=== PATIENT | male | born 1935 | race Caucasian/White ===

== ENCOUNTER → 2017-01-11 | Outpatient (CLI) | payer MEDICARE, OTHER ==
[~2017-01-11] MED LIST: CHOL200026 PO; CIPR-213 PO; FERR325C PO; HYDR-4246 PO; MULT-806 PO; ROSU5TAB PO; TAMS0.4C46 PO
--- NOTE | 2017-01-11 11:55 | DI ---
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 Heart and central vascularity are unremarkable. Mediastinum somewhat widened. Since the previous study there is now a port in place in ordering from the right side. Postoperative changes seen about the gastroesophageal junction and extending down into the left upper quadrant. Lungs are clear. No acute bony abnormality suggested. Impression: 1. Continued elevated right diaphragm without significant change since the 2014 exam. No acute new findings are seen. 2. Since that study there is now a port in place on the right. .
--- NOTE | 2017-01-11 19:20 | ECHOF ---
ECHOCARDIOGRAM DATE OF PROCEDURE January 11, 2017 This is a two-dimensional with spectral Doppler, color-flow and M-mode. It was obtained in a patient with cancer, status post chemotherapy. Left atrial dimension is at the upper limits of normal. Left ventricular end-diastolic dimension is normal. Left ventricular wall thickness is increased. LV systolic function is normal with ejection fraction of 68%. Right atrium is normal. Right ventricle is normal. Aortic root dimension is normal. Mitral annulus is calcified. Mitral valve leaflets are normal with mild mitral regurgitation. Aortic valve shows fibrocalcific changes with no stenosis. Mild aortic insufficiency is present. Tricuspid valve shows mild tricuspid regurgitation with estimated pulmonary artery systolic pressure of 32. Pulmonary valve shows trace of pulmonary insufficiency. There is no pericardial effusion. IMPRESSION 1. Normal LV systolic function with ejection fraction of 68%. 2. Left ventricular hypertrophy. 3. Mitral annulus calcification with mild mitral regurgitation. 4. Aortic sclerosis with mild aortic insufficiency. 5. Mild tricuspid regurgitation with estimated pulmonary artery systolic pressure of 32. 6. Trace of pulmonary insufficiency. MTDD
== END ==
LOC: IMA 07:37
PROVIDERS: ATTEND Internal Medicine Medical Oncology
DX: C16.0 Malignant neoplasm of cardia (principal); I08.3 Combined rheumatic disorders of mitral, aortic and tricuspid valves; Z97.8 Presence of other specified devices
CPT/HCPCS: 93306

== ENCOUNTER 2017-12-24 13:24 | Inpatient (IN) ==
[2017-12-24] MEDS ORDERED: MIDAZOLAM 2mg/2ml INJECTION IVP ONE (13:25)
[2017-12-24] MEDS ORDERED: SALINE FLUSH 10ml SYRINGE IV ONE (13:25)
[2017-12-24] MEDS ORDERED: METOPROLOL 5mg/5ml INJECTION IVP ONE ×2 (13:40→14:22)
--- NOTE | 2017-12-24 14:02 | Cardiology History & Physical ---
History of Present Illness Chief complaint: SOA HPI: Obdulio is a 82 year old with a history of esophageal cancer who was hospitalized from 11/30/17-12/10/17 for robotic assisted esophagectomy which ended up being a laparotomy and thoracotomy incision. Postoperatively he had persistent leukocytosis and tachycardia. On discharge he was afebrile, voiding, ambulating, on room air, tolerating a diet and having bowel movements. The past 2-3 days he has experienced some DAUGHERTY with very little activity which he said he would recover from quickly but has persisted. This morning was his scheduled follow up with Surgeon Dr. Fitzgerald, followed by follow up with his PCP Dr. Gonzalez Richard. At Dr. Fuentes office an EKG was obtained which revealed A Fib with RVR, HR 156. Dr. Casas was contacted and accepted him for observation admission for further evaluation and treatment of A Fib. Review of Systems - Constitutional Constitutional: Present: fatigue. Absent: chills, fever(s) - EENMT Eyes: Absent: change in vision Balance: Absent: vertigo Mouth/Throat: Absent: sore throat - Cardiovascular Cardiovascular: Present: dyspnea on exertion, edema (right leg chronic). Absent : chest pain, palpitations, syncope Rhythm: Absent: abnormal rhythm Vascular: Absent: pedal edema - Respiratory Respiratory: Present: dyspnea on exertion. Absent: cough, wheezing - Gastrointestinal Gastrointestinal: Absent: abdominal pain, diarrhea, nausea, vomiting - Genitourinary Genitourinary: Absent: dysuria - Integumentary/Breasts Integumentary: Absent: rash - Neurological Neurological: Absent: dizziness - Endocrine Endocrine: Absent: palpitations PFS Patient Stated Medical History Cerebrovascular Accident No Paralysis No Seizures No Syncope No Angina No Cardiac Arrhythmia No Congestive Heart Failure No Coronary Artery Disease No Heart Murmur No Hypertension No Hypotension No Myocardial Infarction No Rheumatic Fever No Valvular Heart Disease No Other Cardiology No Asthma No Bronchitis No Chronic Obstructive Pulmonary No Disease (COPD) Pneumonia No Pulmonary Edema No Pulmonary Embolism No Sleep Apnea No Tuberculosis No Other Respiratory No Diabetes Mellitus Type 1 No Diabetes Mellitus Type 2 No Cirrhosis No Gastroesophageal Reflux Yes: hx of- no problems recently Disease Gastrointestinal Bleeding No Hepatitis No Hiatal Hernia No Obstructive Bowel No Ulcer No Other GI No Hx Benign Prostatic Yes Hyperplasia Osteoarthritis Yes Other Musculoskeletal No Anesthesia Reactions No Blood Transfusions No Chemotherapy Yes: LAST AUGUST 2017 Malignant Hyperthermia No Other No Depression No Now No Clinic Medical History (Last Updated 06/04/17 @ 11:27 by Olya Frye LPN) Atrial fibrillation with rapid ventricular response (Acute Medical) New onset Personal history of other malignant neoplasms of lymphoid, hematopoietic and related tissues (Chronic Medical) Esophageal cancer (Chronic Medical) S/P resection of distal esophagus/prox stomach Spinal stenosis of lumbar region (Chronic Medical) Low back pain (Chronic Medical) BPH (benign prostatic hyperplasia) (Chronic Medical) Hypercholesterolemia (Chronic Medical) Surgical History: Hiatal hernia repair 1984. Left knee arthroscopy 1994. Left TKR ([facility]) 12/2011. TURBT with Mitomycin C ([facility]) 01/2013, repeat 07/2013. L4-L5 , L5-S1 laminoforaminotomy 07/2015. Colonscopy 1997, 04/2004 (10). Esophagectomy 11/2017 ([facility]) Family History: Family History (Last Updated 06/04/17 @ 11:30 by Olya Frye LPN) Father , at age 71 CVA (cerebral vascular accident) Mother , in her 70's Leukemia - Social History Smoking status: Former smoker Substance use type: does not use Alcohol intake frequency: does not drink Housing: house Household members: spouse Current occupational status: retired Medications Home Medications Medication Instructions Recorded Confirmed Type Crestor (rosuvastatin) 5 mg tablet 2.5 mg PO QOD #0 tab 06/04/17 10/01/17 History cholecalciferol (vitamin D3) 2,000 2,000 unit PO DAILY cap 06/04/17 10/01/17 History unit capsule yziiynjo-ajo-cayji acid 0.4 1 tab PO QAM 06/04/17 10/01/17 History mg-lycopene 300 mcg-lutein 250 mcg tablet vitamin B complex tablet 1 tab-cap PO DAILY tab 06/04/17 10/01/17 History Tamsulosin HCl 0.4 mg PO HS 09/28/17 10/01/17 History Mirabegron [Myrbetriq] 25 mg PO DAILY #90 tab.er.24h 10/01/17 Rx Amiodarone [Pacerone] 200 mg PO DAILY #30 tab 12/26/17 Rx Apixaban [Eliquis] 5 mg PO BID #60 tab 12/26/17 Rx Carvedilol [Coreg] 3.125 mg PO BIDWM #30 tab 12/26/17 Rx Furosemide [Lasix] 40 mg PO DAILY #30 tab 12/26/17 Rx SACUBITRIL/VALSARTAN 24/26mg 1 tab PO BID #60 tab 12/26/17 Rx [ENTRESTO 24/26mg] Spironolactone [Aldactone] 25 mg PO DAILY #25 tab 12/26/17 Rx Allergies Allergy/AdvReac Type Severity Reaction Status Date / Time simvastatin Allergy Unknown JOINT/MUSCLE Verified 10/01/17 11:57 ACHES hydrocodone AdvReac Severe NAUSEA,DRY Verified 10/01/17 11:57 HEAVES atorvastatin AdvReac Intermediate joint/muscle Verified 10/01/17 11:57 aches Lipitor Allergy Unknown Uncoded 12/10/17 15:06 Zocor Allergy Unknown Uncoded 12/10/17 15:06 Exam - Constitutional mild distress, well nourished, cooperative - Routine HEENT Exam Head: Present: normocephalic ENT: Present: mucous membranes dry - Routine Chest/Breast/Axilla Exam Chest wall: Absent: tenderness - Routine Respiratory Exam Present: decreased breath sounds, CTA bilaterally - Routine Cardiovascular Exam Present: tachycardia, irregular rhythm - Routine Abdominal Exam Present: soft, normoactive bowel sounds - Routine Extremities Exam Present: edema (right worse than left), pulses intact - Routine Skin Exam Present: intact, dry, warm - Routine Neurological Exam Present: alert, oriented X3 - Routine Psychiatric Exam Present: normal affect Results 12/26/17 09:54 12/26/17 05:05 - Imaging and Cardiology Echo: pending Imaging & Cardiology Narrative: DATE OF PROCEDURE December 24, 2017 REFERRING PHYSICIAN Gonzalez Richard MD INDICATION The patient is an 82-year-old gentleman who had a recent esophagectomy for esophagus cancer and was found to have atrial flutter with rapid ventricular rate and symptomatic and despite administration of IV metoprolol, IV verapamil, and IV digoxin, patient's rate remained high in the 160s and remained symptomatic with shortness of breath and hypotension and was referred for DC cardioversion since we were not able to do transesophageal echocardiogram with recent esophagectomy. INFORMED CONSENT Informed consent was obtained after explaining the procedure and the potential risks to the patient who agreed to proceed with the procedure. PROCEDURE 1. DC cardioversion. Conscious sedation was performed using Versed. Anterior-posterior Zoll pads were applied. 360 joules of energy was delivered in synchronized manner and patient converted from atrial flutter into sinus rhythm. He tolerated the procedure well with no complications. IMPRESSION 1. Successful DC cardioversion of atrial flutter into sinus rhythm. PLAN Will start him on antiarrhythmics to maintain sinus and try to use anticoagulation to see if he tolerates anticoagulation with recent surgery. Will start Lovenox for now and if he tolerates Lovenox, then will change him to oral anticoagulants. 12/25/17 10:29 EKG interpretations - EKG EKG shows: tachycardia - Dysrhythmias Supraventricular dysrhythmia: atrial flutter (HR 160) Hospital Course This is a general summary of the patient's hospital course. For more details refer to the complete medical record. Assessment and Plan - Attestation Attestation Narrative: 12/28/17 13:16 Recommendation After examining the patient I agree with the above assessment. I am involved in the formulation of the patient's plan of care. - Assessment and Plan (1) Atrial flutter with rapid ventricular response Status: Acute Given Metoprolol 5mg IVP X2 - Verapamil 5mg and 2.5mg IVP - Digoxin 500mcg IVP X1 - Remained HR 160, hypotensive, hemodynamically unstable - Unable to do LIZETTE due to recent esophagectomy 11/30/17 - Proceeded with sedation and DCCV, 360j X1 with successful conversion to SR - Will start him on antiarrhythmics therapy to maintain sinus, Amiodarone bolus and drip - use Lovenox for anticoagulation to see if he tolerates anticoagulation with recent surgery, if he tolerates Lovenox, then will change him to oral anticoagulants. - Monitor telemetry -EKG in am (2) Esophageal cancer Problem details: S/P resection of distal esophagus/prox stomach Status: Chronic (3) BPH (benign prostatic hyperplasia) Status: Chronic (4) Hypercholesterolemia Status: Chronic - Assessment and Plan Given Metoprolol 5mg IVP X2 - Verapamil 5mg and 2.5mg IVP - Digoxin 500mcg IVP X1 - Remained HR 160, hypotensive, hemodynamically unstable - Unable to do LIZETTE due to recent esophagectomy 11/30/17 - Proceeded with sedation and DCCV, 360j X1 with successful conversion to SR - Will start him on antiarrhythmics therapy to maintain sinus, Amiodarone bolus and drip - use Lovenox for anticoagulation to see if he tolerates anticoagulation with recent surgery, if he tolerates Lovenox, then will change him to oral anticoagulants. - Monitor telemetry -EKG in am
[2017-12-24 14:16] VITALS: BMI 31.0
[2017-12-24] MEDS ORDERED: Verapamil 5 MG/2 ML VIAL IVP ONE ×3 (14:36→16:54)
[2017-12-24] MEDS ORDERED: NS IV PRN (15:07)
[2017-12-24] MEDS ORDERED: VERAPAMIL IV PRN (15:07)
[2017-12-24] MEDS ORDERED: DIGOXIN 500 MCG/2 ML INJECTION IVP ONE (16:55)
[2017-12-24] MEDS ORDERED: AMIODARONE 150 MG in NS 100 ML IV ONE (17:14)
[2017-12-24] MEDS ORDERED: AMIODARONE 450 MG in NS 250ml 250 ML IV SCH (17:15)
[2017-12-24] MEDS ORDERED: ENOXAPARIN 150 MG/ML INJECTION SQ SCH (17:30)
[2017-12-24] MEDS: ENOXAPARIN 100 MG/ML INJECTION SQ SCH (17:41)
[2017-12-24] MEDS: TAMSULOSIN 0.4 MG CAPSULE PO SCH (21:54)
[2017-12-24] MEDS ORDERED: AMIODARONE 900 MG in NS 500ml 500 ML IV SCH (23:15)
--- NOTE | 2017-12-25 08:21 | XRay Report ---
Indication: afib rvr PROCEDURE: XR chest 1V: Encounter: Initial Comparison: December 21, 2017 Findings: Right IJ port catheter. Persistently elevated right hemidiaphragm. Persistent right basilar airspace consolidation without significant change. Pulmonary vascularity is stable. Heart size is unchanged. Impression: Overall minimal change in right basilar airspace disease. .
--- NOTE | 2017-12-25 08:36 | DC Cardioversion ---
DATE OF PROCEDURE December 24, 2017 REFERRING PHYSICIAN Gonzalez Richard MD INDICATION The patient is an 82-year-old gentleman who had a recent esophagectomy for esophagus cancer and was found to have atrial flutter with rapid ventricular rate and symptomatic and despite administration of IV metoprolol, IV verapamil, and IV digoxin, patient's rate remained high in the 160s and remained symptomatic with shortness of breath and hypotension and was referred for DC cardioversion since we were not able to do transesophageal echocardiogram with recent esophagectomy. INFORMED CONSENT Informed consent was obtained after explaining the procedure and the potential risks to the patient who agreed to proceed with the procedure. PROCEDURE 1. DC cardioversion. Conscious sedation was performed using Versed. Anterior-posterior Zoll pads were applied. 360 joules of energy was delivered in synchronized manner and patient converted from atrial flutter into sinus rhythm. He tolerated the procedure well with no complications. IMPRESSION 1. Successful DC cardioversion of atrial flutter into sinus rhythm. PLAN Will start him on antiarrhythmics to maintain sinus and try to use anticoagulation to see if he tolerates anticoagulation with recent surgery. Will start Lovenox for now and if he tolerates Lovenox, then will change him to oral anticoagulants. [facility]
[2017-12-25] MEDS: ENOXAPARIN 100 MG/ML INJECTION SQ SCH (09:19)
[2017-12-25] MEDS: AMIODARONE 200 MG TABLET PO SCH (11:07)
--- NOTE | 2017-12-25 17:24 | Cardiology Progress Note ---
<Lourdes Alvarenga M - Last Filed: 12/26/17 14:14> Exam Vital signs: Temperature 99.0 F 12/25/17 15:45 Pulse Rate 97 12/25/17 16:55 Respiratory Rate 24 12/25/17 16:55 Blood Pressure 155/70 H 12/25/17 16:30 Pulse Oximetry 90 12/25/17 15:45 Inpatient Medications: Generic Name Dose Route Start Last Admin Trade Name Elijah PRN Reason Stop Dose Admin Amiodarone HCl 200 mg 12/25/17 10:30 12/25/17 11:07 Pacerone PO 200 mg DAILY [facility]A Administration Apixaban 5 mg 12/25/17 21:00 Eliquis PO BID LOLA Carvedilol 3.125 mg 12/25/17 17:30 Coreg PO BIDWM LOLA Furosemide 40 mg 12/25/17 17:30 Lasix IVP DAILY [facility] Sacubitril/Valsartan 1 tab 12/25/17 21:00 Entresto 24/26mg PO BID [facility]A Spironolactone 25 mg 12/25/17 17:30 Aldactone PO DAILY [facility] Tamsulosin HCl 0.4 mg 12/24/17 21:00 12/24/17 21:54 Flomax PO Not Given HS LOLA Discontinued Medications Generic Name Dose Route Start Last Admin Trade Name Elijah PRN Reason Stop Dose Admin Digoxin 500 mcg 12/24/17 16:55 12/24/17 17:39 Lanoxin IVP 12/24/17 16:56 500 mcg O ONE Administration Enoxaparin Sodium 95 mg 12/24/17 17:30 Lovenox SQ BID LOLA Enoxaparin Sodium 95 mg 12/24/17 17:30 12/25/17 09:19 Lovenox SQ 95 mg BID LOLA Administration Verapamil HCl 100 mg/ Sodium 100 mls @ 0.57 mls/hr 12/24/17 15:07 Chloride IV .Q24H PRN Protocol 0.0001 MG/KG/MIN Sodium Chloride 1,000 mls @ 999.9 mls/hr 12/24/17 15:30 12/24/17 16:00 Normal Saline IV 12/24/17 15:59 Infused .Q1H [facility]A Infusion Amiodarone HCl 900 mg/ Sodium 500 mls @ 16.66 mls/hr 12/24/17 23:15 12/25/17 10:30 Chloride IV Infused .Q24H [facility]A Infusion 0.5 MG/MIN Amiodarone HCl 450 mg/ Sodium 250 mls @ 33.33 mls/hr 12/24/17 17:15 12/25/17 01:23 Chloride IV 12/24/17 23:15 Infused .Q7H31M [facility]A Infusion 1 MG/MIN Amiodarone HCl 150 mg/ Sodium 103 mls @ 618 mls/hr 12/24/17 17:14 12/24/17 17 :45 Chloride IV 12/24/17 17:23 Infused O ONE Infusion Sodium Chloride 500 mls @ 999.9 mls/hr 12/24/17 16:50 12/24/17 17:25 Normal Saline IV 12/24/17 17:19 Infused .Q30M LOLA Infusion Metoprolol Tartrate 5 mg 12/24/17 13:40 12/24/17 14:11 Lopressor IVP 12/24/17 13:41 5 mg ONCE ONE Administration Metoprolol Tartrate 5 mg 12/24/17 14:22 12/24/17 14:33 Lopressor IVP 12/24/17 14:23 5 mg ONCE ONE Administration Verapamil HCl 5 mg 12/24/17 14:36 12/24/17 15:13 Verapamil IVP 12/24/17 14:37 1.5 mg O ONE Administration Protocol Verapamil HCl 5 mg 12/24/17 16:45 12/24/17 16:50 Verapamil IVP 12/24/17 16:46 5 mg O ONE Administration Protocol Verapamil HCl 2.5 mg 12/24/17 16:54 12/24/17 16:55 Verapamil IVP 12/24/17 16:55 2.5 mg O ONE Administration Protocol - Constitutional no acute distress, well nourished, cooperative - Routine HEENT Exam Head: Present: normocephalic ENT: Present: mucous membranes moist - Routine Neck Exam Present: JVD. Absent: carotid bruit - Routine Chest/Breast/Axilla Exam Chest wall: Absent: tenderness - Routine Respiratory Exam Present: decreased breath sounds, CTA bilaterally. Absent: rales, wheezes - Routine Cardiovascular Exam Present: RRR, no murmur - Routine Abdominal Exam Present: soft, normoactive bowel sounds - Routine Extremities Exam Present: no edema - Routine Skin Exam Present: intact, dry, warm - Routine Neurological Exam Present: alert, oriented X3 - Routine Psychiatric Exam Present: normal affect, normal thought process - Additional findings Additional findings: Amiodarone HCl (Pacerone) 200 mg PO DAILY [facility] Last Admin: 12/25/17 11:07 Dose: 200 mg Apixaban (Eliquis) 5 mg PO BID [facility] Carvedilol (Coreg) 3.125 mg PO BIDWM [facility] Furosemide (Lasix) 40 mg IVP DAILY [facility] Sacubitril/Valsartan (Entresto 24/26mg) 1 tab PO BID [facility] Spironolactone (Aldactone) 25 mg PO DAILY [facility] Tamsulosin HCl (Flomax) 0.4 mg PO HS [facility] Last Admin: 12/24/17 21:54 Dose: Not Given Results 12/26/17 09:54 12/26/17 05:05 Cardiac Enzymes 12/25/17 Range/Units 04:39 AST 24 (17-59) U/L CBC 12/25/17 Range/Units 04:39 WBC 9.7 (4.5-11.0) T/MM3 RBC 3.07 L (4.50-5.90) M/MM3 Hgb 9.3 L (13.5-17.5) GM/DL Hct 30.5 L (41-53) % Plt Count 173 (130-400) T/MM3 Comprehensive Metabolic Panel 12/25/17 Range/Units 04:39 Sodium 141 (134-144) MEQ/L Potassium 4.3 (3.6-5) MEQ/L Chloride 107 (98-107) MEQ/L Carbon Dioxide 27 (22-30) MEQ/L BUN 17.0 (9-20) MG/DL Creatinine 1.0 D (0.8-1.5) MG/DL Glucose 92 (75-110) MG/DL Calcium 8.1 L (8.4-10.2) MG/DL AST 24 (17-59) U/L ALT 30 (21-72) U/L Alkaline Phosphatase 78 (38-126) U/L Total Protein 6.3 (6.3-8.2) G/DL Albumin 2.5 L (3.5-5.0) G/DL Intake and Output 12/25/17 12/25/17 12/25/17 06:59 14:59 22:59 Intake Total 108.467 / 108.467 500 / 500 Output Total 210 / 210 500 / 500 Balance -101.533 / -101.533 0 / 0 Intake: IV 108.467 / 108.467 500 / 500 Amiodarone 450 mg In NS 250ml 108.467 / 108.467 250 ml @ 1 MG/MIN 33.33 mls/hr IV .Q7H31M [facility] Rx#:[id number] Amiodarone 900 mg In NS 500ml 500 / 500 500 ml @ 0.5 MG/MIN 16.66 mls/ hr IV .Q24H [facility] Rx#:[id number] Output: Urine 210 / 210 500 / 500 Other: Urine Appearance Clear Urine Color Dark Yellow - Imaging and Cardiology Echo: report reviewed (EF 35%) Imaging & Cardiology Narrative: DATE OF PROCEDURE December 24, 2017 REFERRING PHYSICIAN Gonzalez Richard MD INDICATION The patient is an 82-year-old gentleman who had a recent esophagectomy for esophagus cancer and was found to have atrial flutter with rapid ventricular rate and symptomatic and despite administration of IV metoprolol, IV verapamil, and IV digoxin, patient's rate remained high in the 160s and remained symptomatic with shortness of breath and hypotension and was referred for DC cardioversion since we were not able to do transesophageal echocardiogram with recent esophagectomy. INFORMED CONSENT Informed consent was obtained after explaining the procedure and the potential risks to the patient who agreed to proceed with the procedure. PROCEDURE 1. DC cardioversion. Conscious sedation was performed using Versed. Anterior-posterior Zoll pads were applied. 360 joules of energy was delivered in synchronized manner and patient converted from atrial flutter into sinus rhythm. He tolerated the procedure well with no complications. IMPRESSION 1. Successful DC cardioversion of atrial flutter into sinus rhythm. PLAN Will start him on antiarrhythmics to maintain sinus and try to use anticoagulation to see if he tolerates anticoagulation with recent surgery. Will start Lovenox for now and if he tolerates Lovenox, then will change him to oral anticoagulants. 12/25/17 17:25 12/26/17 14:14 = = = = = = = = = = = = = = = = = = = = = = = = = = = = = = = = = = = = = = = = = = = = = = = = = = = = = = = = = = = Date of Exam: 12/24/17 Type of Exam(s): US echo doppler complete DATE OF PROCEDURE December 24, [address] Gonzalez Richard This is a two-dimensional echo with spectral Doppler, color-flow and M-mode. It was obtained in a patient with atrial fibrillation. Left atrial dimension is normal. Left ventricular end-diastolic dimension is normal. Left ventricle wall thickness increased. Global hypokinesia is present with ejection fraction of about 35%. Right atrium is normal. Right ventricle is normal. Aortic root dimension is increased at 4.3 cm. Mitral valve is morphologically normal with [id number] mitral regurgitation. Aortic valve is a trileaflet structure with no stenosis. Moderate aortic insufficiency is present. Tricuspid valve shows [id number] tricuspid regurgitation with moderate pulmonary hypertension with estimated pulmonary artery systolic pressure of 57. Pulmonary valve shows trace of pulmonary insufficiency. There is no pericardial effusion. IMPRESSION 1. Mild concentric left ventricular hypertrophy. 2. Global hypokinesia with ejection fraction of about 35%. 3. Aortic root dilation at 4.3 cm. 4. Isot-fb-ptdneogt mitral regurgitation. 5. Moderate aortic insufficiency. 6. Mpon-xq-nelzuiqs tricuspid regurgitation with moderate pulmonary hypertension with estimated pulmonary artery systolic pressure of 57. 7. Trace of pulmonary insufficiency. 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 Status: Chronic (4) BPH (benign prostatic hyperplasia) Status: Chronic (5) Hypercholesterolemia Status: Chronic - Assessment and Plan 12/24/17 Given Metoprolol 5mg IVP X2 - Verapamil 5mg and 2.5mg IVP - Digoxin 500mcg IVP X1 - Remained HR 160, hypotensive, hemodynamically unstable - Unable to do LIZETTE due to recent esophagectomy 11/30/17 - Proceeded with sedation and DCCV, 360j X1 with successful conversion to SR - Will start him on antiarrhythmics therapy to maintain sinus, Amiodarone bolus and drip - use Lovenox for anticoagulation to see if he tolerates anticoagulation with recent surgery, if he tolerates Lovenox, then will change him to oral anticoagulants. - Monitor telemetry -EKG in am 12/25/17 - Change Amiodarone drip to 200mg po daily - Eliquis 5mg po BID for anticoagulation, stop Lovenox - EF reduced, needs diuresis and start HF regimen - Start Lasix 40mg IV now then daily - Coreg 3.125mg po BID - Entresto 24/26mg po BID - Spironolactone 25mg po daily - Monitor HGB and Platelets for signs of blood loss - Monitor renal and electrolytes - Moniotr telemetry - EKG prn rhythm change - OK to transfer to Medical unit Hospital Course Summary Disclaimer: The visit summary below is not to be considered part of the above Progress Note. <Frank Casas - Last Filed: 01/02/18 07:53> Exam Vital signs: Temperature 99.5 F 12/26/17 16:00 Pulse Rate 91 12/26/17 16:01 Respiratory Rate 16 12/26/17 16:00 Blood Pressure 124/67 12/26/17 16:00 Pulse Oximetry 92 12/26/17 16:00 Inpatient Medications: Discontinued Medications Generic Name Dose Route Start Last Admin Trade Name Freq PRN Reason Stop Dose Admin Acetaminophen 650 mg 12/25/17 19:39 12/25/17 20:44 Tylenol PO 650 mg Q5H PRN Administration Fever Amiodarone HCl 200 mg 12/25/17 10:30 12/26/17 09:33 Pacerone PO 200 mg DAILY [facility]A Administration Apixaban 5 mg 12/25/17 21:00 12/26/17 09:33 Eliquis PO 5 mg BID LOLA Administration Carvedilol 3.125 mg 12/25/17 17:30 12/26/17 17:47 Coreg PO 3.125 mg BIDWM LOLA Administration Digoxin 500 mcg 12/24/17 16:55 12/24/17 17:39 Lanoxin IVP 12/24/17 16:56 500 mcg O ONE Administration Enoxaparin Sodium 95 mg 12/24/17 17:30 Lovenox SQ BID LOLA Enoxaparin Sodium 95 mg 12/24/17 17:30 12/25/17 09:19 Lovenox SQ 95 mg BID LOLA Administration Furosemide 40 mg 12/25/17 17:30 12/26/17 09:34 Lasix IVP 40 mg DAILY [facility]A Administration Furosemide 40 mg 12/27/17 09:00 Lasix PO DAILY [facility] Verapamil HCl 100 mg/ Sodium 100 mls @ 0.57 mls/hr 12/24/17 15:07 Chloride IV .Q24H PRN Protocol 0.0001 MG/KG/MIN Sodium Chloride 1,000 mls @ 999.9 mls/hr 12/24/17 15:30 12/24/17 16:00 Normal Saline IV 12/24/17 15:59 Infused .Q1H [facility] Infusion Amiodarone HCl 900 mg/ Sodium 500 mls @ 16.66 mls/hr 12/24/17 23:15 12/25/17 10:30 Chloride IV Infused .Q24H [facility]A Infusion 0.5 MG/MIN Amiodarone HCl 450 mg/ Sodium 250 mls @ 33.33 mls/hr 12/24/17 17:15 12/25/17 01:23 Chloride IV 12/24/17 23:15 Infused .Q7H31M [facility]A Infusion 1 MG/MIN Amiodarone HCl 150 mg/ Sodium 103 mls @ 618 mls/hr 12/24/17 17:14 12/24/17 17 :45 Chloride IV 12/24/17 17:23 Infused O ONE Infusion Sodium Chloride 500 mls @ 999.9 mls/hr 12/24/17 16:50 12/24/17 17:25 Normal Saline IV 12/24/17 17:19 Infused .Q30M [facility]A Infusion Metoprolol Tartrate 5 mg 12/24/17 13:40 12/24/17 14:11 Lopressor IVP 12/24/17 13:41 5 mg ONCE ONE Administration Metoprolol Tartrate 5 mg 12/24/17 14:22 12/24/17 14:33 Lopressor IVP 12/24/17 14:23 5 mg ONCE ONE Administration Rosuvastatin Calcium 2.5 mg 12/26/17 09:00 12/26/17 09:36 Crestor PO 2.5 mg Q2D LOLA Administration Sacubitril/Valsartan 1 tab 12/25/17 21:00 12/26/17 09:34 Entresto 24/26mg PO 1 tab BID [facility] Administration Spironolactone 25 mg 12/25/17 17:30 12/26/17 09:34 Aldactone PO 25 mg DAILY [facility] Administration Tamsulosin HCl 0.4 mg 12/24/17 21:00 12/25/17 20:46 Flomax PO 0.4 mg HS [facility]A Administration Verapamil HCl 5 mg 12/24/17 14:36 12/24/17 15:13 Verapamil IVP 12/24/17 14:37 1.5 mg O ONE Administration Protocol Verapamil HCl 5 mg 12/24/17 16:45 12/24/17 16:50 Verapamil IVP 12/24/17 16:46 5 mg O ONE Administration Protocol Verapamil HCl 2.5 mg 12/24/17 16:54 12/24/17 16:55 Verapamil IVP 12/24/17 16:55 2.5 mg O ONE Administration Protocol Results 12/26/17 09:54 12/26/17 05:05 Assessment and Plan - Assessment and Plan (1) Atrial flutter with rapid ventricular response Status: Acute (2) Esophageal cancer Problem details: S/P resection of distal esophagus/prox stomach Status: Chronic (3) BPH (benign prostatic hyperplasia) Status: Chronic (4) Hypercholesterolemia Status: Chronic - Attestation Attestation Narrative: 01/02/18 07:53 Recommendation After examining the patient I agree with the above assessment. I am involved in the formulation of the patient's plan of care. Hospital Course Summary Disclaimer: The visit summary below is not to be considered part of the above Progress Note.
[2017-12-25] MEDS ORDERED: ACETAMINOPHEN 325 MG TABLET PO PRN (19:39)
[2017-12-25] MEDS: SACUBITRIL/VALSARTAN 24/26mg TABLET PO SCH (20:43)
[2017-12-25] MEDS: TAMSULOSIN 0.4 MG CAPSULE PO SCH (20:46)
[2017-12-25] MEDS: APIXABAN 5 MG TABLET PO SCH (20:47)
[2017-12-25] MEDS: SPIRONOLACTONE 25 MG TABLET PO SCH (23:13)
[2017-12-25] MEDS: CARVEDILOL 3.125 MG TABLET PO SCH (23:13)
[2017-12-25] MEDS: FUROSEMIDE 40 MG/4 ML INJECTION IVP SCH (23:13)
--- NOTE | 2017-12-26 08:00 | Echocardiogram ---
DATE OF PROCEDURE December 24, [address] Gonzalez Richard This is a two-dimensional echo with spectral Doppler, color-flow and M-mode. It was obtained in a patient with atrial fibrillation. Left atrial dimension is normal. Left ventricular end-diastolic dimension is normal. Left ventricle wall thickness increased. Global hypokinesia is present with ejection fraction of about 35%. Right atrium is normal. Right ventricle is normal. Aortic root dimension is increased at 4.3 cm. Mitral valve is morphologically normal with [id number] mitral regurgitation. Aortic valve is a trileaflet structure with no stenosis. Moderate aortic insufficiency is present. Tricuspid valve shows [id number]-[id number]-miqkkohr tricuspid regurgitation with moderate pulmonary hypertension with estimated pulmonary artery systolic pressure of 57. Pulmonary valve shows trace of pulmonary insufficiency. There is no pericardial effusion. IMPRESSION 1. Mild concentric left ventricular hypertrophy. 2. Global hypokinesia with ejection fraction of about 35%. 3. Aortic root dilation at 4.3 cm. 4. Csug-xj-ljharkdj mitral regurgitation. 5. Moderate aortic insufficiency. 6. Azrf-br-xxaaibmj tricuspid regurgitation with moderate pulmonary hypertension with estimated pulmonary artery systolic pressure of 57. 7. Trace of pulmonary insufficiency. MTDD
[2017-12-26] MEDS ORDERED: ROSUVASTATIN 5 MG TABLET PO SCH (09:00)
[2017-12-26] MEDS: AMIODARONE 200 MG TABLET PO SCH (09:33)
[2017-12-26] MEDS: APIXABAN 5 MG TABLET PO SCH (09:33)
[2017-12-26] MEDS: FUROSEMIDE 40 MG/4 ML INJECTION IVP SCH (09:34)
[2017-12-26] MEDS: SPIRONOLACTONE 25 MG TABLET PO SCH (09:34)
[2017-12-26] MEDS: SACUBITRIL/VALSARTAN 24/26mg TABLET PO SCH (09:34)
[2017-12-26] MEDS: CARVEDILOL 3.125 MG TABLET PO SCH ×2 (09:34→17:47)
[2017-12-26 12:05] VITALS: RESP 16
--- NOTE | 2017-12-26 15:04 | Discharge Summary ---
<Lourdes Alvarenga - Last Filed: 12/27/17 13:00> Discharge Information Date of admission: 12/26/17 14:39 Anticipated date of discharge: 12/26/17 Attending Physician: Frank Casas MD Primary care physician: Gonzalez Richard MD Consults: 12/26/17 IRU Screening [Inpatient Rehab Screening] [CONS] Routine Screen requested by:: Case Management - Discharge Diagnosis (1) Acute systolic (congestive) heart failure Status: Acute (2) Atrial flutter with rapid ventricular response Status: Acute (3) Esophageal cancer Status: Chronic (4) BPH (benign prostatic hyperplasia) Status: Chronic (5) Hypercholesterolemia Status: Chronic Acute systolic heart failure, New onset atrial flutter with RVR - Procedures Procedures: DATE OF PROCEDURE December 24, 2017 REFERRING PHYSICIAN Gonzalez Richard MD INDICATION The patient is an 82-year-old gentleman who had a recent esophagectomy for esophagus cancer and was found to have atrial flutter with rapid ventricular rate and symptomatic and despite administration of IV metoprolol, IV verapamil, and IV digoxin, patient's rate remained high in the 160s and remained symptomatic with shortness of breath and hypotension and was referred for DC cardioversion since we were not able to do transesophageal echocardiogram with recent esophagectomy. INFORMED CONSENT Informed consent was obtained after explaining the procedure and the potential risks to the patient who agreed to proceed with the procedure. PROCEDURE 1. DC cardioversion. Conscious sedation was performed using Versed. Anterior-posterior Zoll pads were applied. 360 joules of energy was delivered in synchronized manner and patient converted from atrial flutter into sinus rhythm. He tolerated the procedure well with no complications. IMPRESSION 1. Successful DC cardioversion of atrial flutter into sinus rhythm. PLAN Will start him on antiarrhythmics to maintain sinus and try to use anticoagulation to see if he tolerates anticoagulation with recent surgery. Will start Lovenox for now and if he tolerates Lovenox, then will change him to oral anticoagulants. - Laboratory Labs: 12/26/17 09:54 12/26/17 05:05 History of Present Illness HPI: Obdulio is a 82 year old with a history of esophageal cancer who was hospitalized from 11/30/17-12/10/17 for robotic assisted esophagectomy which ended up being a laparotomy and thoracotomy incision. Postoperatively he had persistent leukocytosis and tachycardia. On discharge he was afebrile, voiding, ambulating, on room air, tolerating a diet and having bowel movements. The past 2-3 days he has experienced some DAUGHERTY with very little activity which he said he would recover from quickly but has persisted. This morning was his scheduled follow up with Surgeon Dr. Fitzgerald, followed by follow up with his PCP Dr. Gonzalez Richard. At Dr. Fuentes office an EKG was obtained which revealed A Fib with RVR, HR 156. Dr. Casas was contacted and accepted him for observation admission for further evaluation and treatment of A Fib. Hospital Course This is a general summary of the patient's hospital course. For more details refer to the complete medical record. Hospital course: 12/24/17 Given Metoprolol 5mg IVP X2 - Verapamil 5mg and 2.5mg IVP - Digoxin 500mcg IVP X1 - Remained HR 160, hypotensive, hemodynamically unstable - Unable to do LIZETTE due to recent esophagectomy 11/30/17 - Proceeded with sedation and DCCV, 360j X1 with successful conversion to SR - Will start him on antiarrhythmics therapy to maintain sinus, Amiodarone bolus and drip - use Lovenox for anticoagulation to see if he tolerates anticoagulation with recent surgery, if he tolerates Lovenox, then will change him to oral anticoagulants. - Monitor telemetry -EKG in am 12/25/17 - Change Amiodarone drip to 200mg po daily - Eliquis 5mg po BID for anticoagulation, stop Lovenox - EF reduced, needs diuresis and start HF regimen - Start Lasix 40mg IV now then daily - Coreg 3.125mg po BID - Entresto 24/26mg po BID - Spironolactone 25mg po daily - Monitor HGB and Platelets for signs of blood loss - Monitor renal and electrolytes - Moniotr telemetry - EKG prn rhythm change - OK to transfer to Medical unit Time spent with patient: 25 - 35 minutes Exam Vital signs: Temperature 97.9 F 12/26/17 12:05 Pulse Rate 77 12/26/17 12:05 Respiratory Rate 16 12/26/17 12:05 Blood Pressure 107/59 12/26/17 12:05 Pulse Oximetry 98 12/26/17 12:05 - Constitutional no acute distress, well nourished, cooperative - Routine HEENT Exam Head: Present: normocephalic ENT: Present: mucous membranes moist - Routine Neck Exam Absent: JVD, carotid bruit - Routine Chest/Breast/Axilla Exam Chest wall: Absent: tenderness - Routine Respiratory Exam Present: decreased breath sounds, CTA bilaterally - Routine Cardiovascular Exam Present: RRR, no murmur - Routine Abdominal Exam Present: soft, normoactive bowel sounds - Routine Extremities Exam Present: no edema - Routine Skin Exam Present: intact, dry, warm - Routine Neurological Exam Present: alert, oriented X3 - Routine Psychiatric Exam Present: normal affect, normal thought process Results 12/26/17 09:54 12/26/17 05:05 Cardiac Enzymes 12/25/17 Range/Units 19:31 B-Natriuretic Peptide 1240 H (0-175) pg/mL Coagulation 12/25/17 Range/Units 19:31 B-Natriuretic Peptide 1240 H (0-175) pg/mL CBC 12/26/17 12/26/17 Range/Units 05:05 09:54 WBC 6.5 11.1 H D (4.5-11.0) T/MM3 RBC 5.48 3.34 L (4.50-5.90) M/MM3 Hgb 16.6 D 10.1 L D (13.5-17.5) GM/DL Hct 51.9 D 32.7 L D (41-53) % Plt Count 77 L D 179 D (130-400) T/MM3 Comprehensive Metabolic Panel 12/26/17 Range/Units 05:05 Sodium 140 (134-144) MEQ/L Potassium 4.2 (3.6-5) MEQ/L Chloride 108 H (98-107) MEQ/L Carbon Dioxide 26 (22-30) MEQ/L BUN 13.0 (9-20) MG/DL Creatinine 0.9 (0.8-1.5) MG/DL Glucose 89 (75-110) MG/DL Calcium 8.1 L (8.4-10.2) MG/DL Intake and Output 12/26/17 12/26/17 12/26/17 06:59 14:59 22:59 Intake Total 125 / 125 Output Total 375 / 375 1600 / 1600 Balance -250 / -250 -1600 / -1600 Intake: Oral 125 / 125 Output: Urine 375 / 375 1600 / 1600 Other: Urine Appearance Clear Clear Urine Color Yellow Pale # Voids 2 # Incontinent Voids 1 Weight 212 lb 4.882 oz Patient Weight 12/27/17 06:59 Weight 212 lb 4.882 oz - Imaging and Cardiology Imaging & Cardiology Narrative: Date of Exam: 12/24/17 Type of Exam(s): US echo doppler complete DATE OF PROCEDURE December 24, [address] Gonzalez Richard This is a two-dimensional echo with spectral Doppler, color-flow and M-mode. It was obtained in a patient with atrial fibrillation. Left atrial dimension is normal. Left ventricular end-diastolic dimension is normal. Left ventricle wall thickness increased. Global hypokinesia is present with ejection fraction of about 35%. Right atrium is normal. Right ventricle is normal. Aortic root dimension is increased at 4.3 cm. Mitral valve is morphologically normal with orrk-hb-tmnxsxjd mitral regurgitation. Aortic valve is a trileaflet structure with no stenosis. Moderate aortic insufficiency is present. Tricuspid valve shows comq-ev-aldoysby tricuspid regurgitation with moderate pulmonary hypertension with estimated pulmonary artery systolic pressure of 57. Pulmonary valve shows trace of pulmonary insufficiency. There is no pericardial effusion. IMPRESSION 1. Mild concentric left ventricular hypertrophy. 2. Global hypokinesia with ejection fraction of about 35%. 3. Aortic root dilation at 4.3 cm. 4. Smhe-br-wyccxqdo mitral regurgitation. 5. Moderate aortic insufficiency. 6. Uvkk-bd-lgcnnwtv tricuspid regurgitation with moderate pulmonary hypertension with estimated pulmonary artery systolic pressure of 57. 7. Trace of pulmonary insufficiency. 12/26/17 15:01 12/26/17 15:02 Date of Exam: 12/24/17 Ordering Provider: Lourdes Alvarenga APRN Type of Exam(s): XR chest 1V Reason for Exam(s): afib rvr Indication: afib rvr PROCEDURE: XR chest 1V: Encounter: Initial Comparison: December 21, 2017 Findings: Right IJ port catheter. Persistently elevated right hemidiaphragm. Persistent right basilar airspace consolidation without significant change. Pulmonary vascularity is stable. Heart size is unchanged. Impression: Overall minimal change in right basilar airspace disease. - EKG Interpretation EKG: sinus rhythm Discharge Plan - Med Rec/Dispo Referrals/Follow Up: Frank Casas MD [Physician] - 2 Weeks [facility] Instructions: Atrial Flutter (DC), A-fib (Atrial Fibrillation) (DC) Prescriptions: New Apixaban [Eliquis] 5 mg PO BID #60 tab Carvedilol [Coreg] 3.125 mg PO BIDWM #30 tab Furosemide [Lasix] 40 mg PO DAILY #30 tab SACUBITRIL/VALSARTAN 24/26mg [ENTRESTO 24/26mg] 1 tab PO BID #60 tab Spironolactone [Aldactone] 25 mg PO DAILY #25 tab Amiodarone [Pacerone] 200 mg PO DAILY #30 tab Continue Mirabegron [Myrbetriq] 25 mg PO DAILY #90 tab.er.24h Tamsulosin HCl 0.4 mg PO HS vitamin B complex tablet 1 tab-cap PO DAILY tab cholecalciferol (vitamin D3) 2,000 unit capsule 2,000 unit PO DAILY cap Crestor (rosuvastatin) 5 mg tablet 2.5 mg PO QOD #0 tab zuwaxztm-ixx-tvwqo acid 0.4 mg-lycopene 300 mcg-lutein 250 mcg tablet 1 tab PO QAM Discontinued Aspirin Chewable [ASA] 81 mg PO DAILY metoprolol tartrate 25 mg tablet 12.5 mg PO BID - Disposition [address] [facility] - Dismissal Complete Discharge Instructions are:: Complete <Frank Casas - Last Filed: 01/01/18 16:39> Discharge Information Date of admission: 12/26/17 14:39 Attending Physician: Frank Casas MD Primary care physician: Gonzalez Richard MD Consults: 12/26/17 IRU Screening [Inpatient Rehab Screening] [CONS] Routine Screen requested by:: Case Management - Discharge Diagnosis (1) Atrial flutter with rapid ventricular response Status: Acute (2) Esophageal cancer Status: Chronic (3) BPH (benign prostatic hyperplasia) Status: Chronic (4) Hypercholesterolemia Status: Chronic - Laboratory Labs: 12/26/17 09:54 12/26/17 05:05 Hospital Course This is a general summary of the patient's hospital course. For more details refer to the complete medical record. Exam Vital signs: Temperature 99.5 F 12/26/17 16:00 Pulse Rate 91 12/26/17 16:01 Respiratory Rate 16 12/26/17 16:00 Blood Pressure 124/67 12/26/17 16:00 Pulse Oximetry 92 12/26/17 16:00 Results 12/26/17 09:54 12/26/17 05:05 Attestation Narriative - Attestation Attestation Narrative: 01/01/18 16:39 Recommendation After examining the patient I agree with the above assessment. I am involved in the formulation of the patient's plan of care.
[2017-12-26 16:39] VITALS: BP 124/67; TEMP 99.5; O2SAT 92
[2017-12-26 18:20] VITALS: PULSE 91
[2017-12-27] MEDS ORDERED: FUROSEMIDE 40 MG TABLET PO SCH (09:00)
== END 2017-12-26 18:37 | DRG 308 ==
LOC: CCU → MED 12-25 18:57
PROVIDERS: ADMIT Internal Medicine Cardiovascular Disease; ATTEND Internal Medicine Cardiovascular Disease

== ENCOUNTER 2017-12-26 18:40 | Inpatient (IN) ==
[2017-12-26 19:14] VITALS: BMI 31.1
[2017-12-26] MEDS: TAMSULOSIN 0.4 MG CAPSULE PO SCH (21:56)
[2017-12-26] MEDS: APIXABAN 5 MG TABLET PO SCH (21:56)
[2017-12-26] MEDS: SACUBITRIL/VALSARTAN 24/26mg TABLET PO SCH (21:56)
[2017-12-27] MEDS: SPIRONOLACTONE 25 MG TABLET PO SCH (09:27)
[2017-12-27] MEDS: SACUBITRIL/VALSARTAN 24/26mg TABLET PO SCH ×2 (09:27→21:09)
[2017-12-27] MEDS: CARVEDILOL 3.125 MG TABLET PO SCH ×2 (09:27→18:03)
[2017-12-27] MEDS: APIXABAN 5 MG TABLET PO SCH ×2 (09:27→21:09)
[2017-12-27] MEDS: AMIODARONE 200 MG TABLET PO SCH (09:28)
[2017-12-27] MEDS: FUROSEMIDE 40 MG TABLET PO SCH (09:32)
--- NOTE | 2017-12-27 10:18 | IRU 24Hr Post Admit Eval ---
24 Hr Post Admission Physical - Relevant Changes Relevant Changes: No Reviewed: I have reviewed the patient's information and concur with the finding and results of the pre-admission screen. Certification: I certify the patient for rehabilitation. - Patient Condition (1) Atrial flutter with rapid ventricular response Status: Acute Code(s): I48.92 - Unspecified atrial flutter Classification: IRF Tx That Should Address Diagnosis, Diagnosis Requiring Medical Follow Up (2) Acute systolic (congestive) heart failure Status: Acute Code(s): I50.21 - Acute systolic (congestive) heart failure Classification: Present on IRF Admission, IRF Tx That Should Address Diagnosis, Diagnosis Requiring Medical Follow Up (3) Pleural effusion on right Status: Acute Code(s): J90 - Pleural effusion, not elsewhere classified Classification: Present on IRF Admission, IRF Tx That Should Address Diagnosis, Diagnosis Requiring Medical Follow Up (4) Esophageal cancer Status: Chronic Qualifiers: Malignant neoplasm of esophagus location: unspecified location Qualified Code(s): C15.9 - Malignant neoplasm of esophagus, unspecified Code(s): C15.9 - Malignant neoplasm of esophagus, unspecified Classification: IRF Tx That Should Address Diagnosis, Diagnosis Requiring Medical Follow Up - Prior Functional Status Lives With: Spouse Residence Type: Apartment/Private Home Assitive Devices: Front Wheeled Walker Prior Functional Status: Indep. at home or school, Depend. w/ IADL - Current Functional Status Current Level of Function: Patient currently requires supervision for grooming and upper body dressing. However he requires maximum assistance for lower body dressing, walking with a rolling walker 110 feet. He requires minimum assistance for bed/chair/ wheelchair transfers. At the present time it is unsafe to test items such as bathing. Physical therapy indicated decreased strength, endurance and fatigue along with drop in saturations to 89% after exercise on room air. Failed Alternative Therapy: Yes (patient was admitted as an outpatient and underwent cardioversion. He is not safe to be treated as an outpatient at present.) Patient Requirements: The patient requires oversight by rehabilitation physician to manage their rehabilitation treatment plan and multidisciplinary approach to care that can only be provided in an IRF and requires a multidisciplinary approach to care, provided by professional PTs, OTs, STs, dieticians, RTs, rehabilitation nurses and is not available in lesser levels of care. Limitations Req: Mobility Impairment, ADL Impairment, Respiratory Impairment Physical Therapy Minutes: 90 Occupational Therapy Minutes: 90 Therapy: The patient is to receive therapy at least 5 days a week. - Complications/Comorbidities Impact on Functional Outcomes: Patient's acute systolic heart failure and pleural effusion versus infiltrate in right lower lobe will negatively impact his functional outcome. Barriers to Discharge: Weakness, Endurance, Medical Limitation - Plan to Avoid Complications Plan to Avoid Complications: The patient cannot receive this care in a lesser intensive setting such as Prison or Outpatient Therapy due to the patient requiring the following : Patient requires 24 rehabilitation nursing monitoring of his cardiac status in view of recent atrial flutter with rapid ventricular response. He requires monitoring of his acute systolic heart failure to ensure no worsening. He requires physical therapy and occupational therapy in a multidisciplinary manner in view of his multiple medical problems. He requires medical supervision of these issues as well.
--- NOTE | 2017-12-27 14:44 | IRU History & Physical Report ---
[facility] IRU Date: Date: 12/27/17 Time: 1439 Chief complaint: I had rapid heart beat and shortness of breath HPI: Mr. López is a very pleasant 82-year-old male who is referred by Dr. Lincoln Casas. The patient's primary care physician is Dr. Gonzalez Richard. History is obtained from the patient, the patient's and hospital records. The patient was feeling in his typical state of health until 12/24/2017. He presented to his physician's office (Dr. Gonzalez Richard) who noted the patient to have atrial fibrillation with rapid ventricular response on exam and ECG. Symptomatically the patient felt very tired and was short of breath. He denied any chest pain. He had had some shortness of breath for about 2-3 days prior to this presentation. Dr. Casas's office was contacted and the patient was admitted to the hospital with a ventricular rate of about 156. The patient underwent cardioversion on December 24, 2017. He was felt to have atrial flutter with rapid ventricular rate and this was symptomatic despite administration of intravenous metoprolol, verapamil and digoxin. His rate remained high in the 160s despite those medications. The patient was unable to tolerate a transesophageal echocardiogram because of his recent esophagectomy. DC cardioversion was performed with conscious sedation using Versed on 2017. 360 J of energy were delivered in a synchronized manner and he was converted into normal sinus rhythm. Dr. Casas recommended starting antiarrhythmics and Lovenox initially. If he tolerated that then he was going to change him to oral anticoagulants. Echocardiogram was done demonstrating ejection fraction of 35% in the setting of a global hypokinesis. He had evidence of mild concentric left ventricular hypertrophy, aortic root dilatation at 4.3 cm, mild to moderate mitral regurgitation and moderate aortic insufficiency. He also had mild to moderate tricuspid regurgitation with moderate pulmonary hypertension at 57 mmHg. It is noted that the patient has recently undergone esophagectomy. Dr. Paddy Fitzgerald, thoracic surgeon and Dr. Joey Rodriguez were involved in his procedure and care. He apparently was on chemotherapy from Dr. Ahmadi for an esophageal cancer for about one to 1 1/2 years. According to the patient and his this "shrunk" the tumor but that a residual mass remained. For this reason the patient elected to undergo esophagectomy which was performed on or about 11/30/2017. This was initially a robotic-assisted esophagectomy however it was converted to laparotomy and thoracotomy incision. He did have elevated white cells and tachycardia in the immediate postoperative timeframe. The patient had a G-tube placed (not a PEG tube) and was receiving feedings through this. However at the present time he is getting his entire nutrition orally. He was advised not to eat any beef, poultry or bread. If the meat is chopped up adequately then he can eat it. The patient does have persistent right basilar airspace consolidation on chest radiograph. The patient lives with his in their own home. He has 2 steps to get up into his home and he does use a front-wheeled walker. Patient's prior level of functioning is as follows: He was independent for all activities noted. Patient's current level of functioning is as follows: He is modified independent for eating, requires supervision for grooming and upper body dressing. He requires maximum assistance for lower body dressing, and walking with a rolling walker 110 feet. He requires minimum assistance for bed/chair/ wheelchair transfers. The following medical conditions are noted and require active monitoring and/or management: 1. Acute systolic heart failure with ejection fraction 35%: Because of need for additional aggressive therapy, he is at risk for worsening in his systolic heart failure. 2. Recent atrial flutter with rapid ventricular response, status post cardioversion: Patient is at risk for recurrence of this arrhythmia with subsequent risk of hypotension and syncope. 3. Recent esophagectomy presumably for malignancy: He is at risk for bleeding problems in view of his need for anticoagulation from his atrial fibrillation. He is at risk for nutritional concerns as well. The following therapies will be needed: 1. Physical therapy: for transfers and ambulation and stairs. 2. Occupational therapy: for ADL's and transfers. 3. Medical management: for the above conditions. 4. 24 hour Rehabilitation Nursing to monitor and address the following: Close monitoring of patient's blood pressure, heart rate and cardiac status, monitoring of nutritional intake and to reduce fall risk. [facility] Patient Stated Medical History Cerebrovascular Accident No Paralysis No Seizures No Syncope No Dysphagia Yes Angina No Cardiac Arrhythmia Yes Congestive Heart Failure No Coronary Artery Disease No Heart Murmur No Hypertension No Hypotension No Myocardial Infarction No Rheumatic Fever No Valvular Heart Disease No Other Cardiology No Asthma No Bronchitis No Chronic Obstructive Pulmonary No Disease (COPD) Pneumonia No Pulmonary Edema No Pulmonary Embolism No Sleep Apnea No Tuberculosis No Other Respiratory No Diabetes Mellitus Type 1 No Diabetes Mellitus Type 2 No Cirrhosis No Constipation No Gastroesophageal Reflux Yes: esophagectomy nov.30 Disease Gastrointestinal Bleeding No Hepatitis No Hiatal Hernia No Obstructive Bowel No Ulcer No Other GI No Hx Benign Prostatic Yes Hyperplasia Hx Incontinence Yes Osteoarthritis Yes Other Musculoskeletal No Anesthesia Reactions No Blood Transfusions No Chemotherapy Yes: LAST AUGUST 2017 Malignant Hyperthermia No Other No Depression No Now No Clinic Medical History (Last Updated 06/04/17 @ 11:27 by Olya Frye LPN) Atrial fibrillation with rapid ventricular response (Acute Medical) New onset Personal history of other malignant neoplasms of lymphoid, hematopoietic and related tissues (Chronic Medical) Esophageal cancer (Chronic Medical) S/P resection of distal esophagus/prox stomach Spinal stenosis of lumbar region (Chronic Medical) Low back pain (Chronic Medical) BPH (benign prostatic hyperplasia) (Chronic Medical) Hypercholesterolemia (Chronic Medical) Surgical History: Hiatal hernia repair 1984. Left knee arthroscopy 1994. Left TKR ([facility]) 12/2011. TURBT with Mitomycin C ([facility]) 01/2013, repeat 07/2013. L4-L5 , L5-S1 laminoforaminotomy 07/2015. Colonscopy 1997, 04/2004 (10). Esophagectomy 11/2017 (Lia) Family History: Family History (Last Updated 06/04/17 @ 11:30 by Olya Frye LPN) Father , at age 71 CVA (cerebral vascular accident) Mother , in her 70's Leukemia - Social History Smoking status: Former smoker (patient smoked a small amount from age 21 until age 26 and then stopped.) Alcohol intake: current Alcohol intake frequency: a few times a month (occasional wine intake.) Housing: house Household members: spouse Current occupational status: retired Current residence: Apartment/Private Home Social history: Patient has worked as a farm stores assistant. He lives with his in their own home. Review of Systems - Constitutional Constitutional: Present: fatigue, weakness, weight loss (patient reports having lost 11 pounds over the last month or so.). Absent: anorexia, chills, fever(s) , headache(s), lethargy, malaise, night sweats, weight gain - EENMT Eyes: Absent: blurry vision, change in vision, diplopia Mouth/Throat: Present: changes in swallowing. Absent: painful swallowing, change in taste, bleeding gums, change in voice - Cardiovascular Cardiovascular: Absent: chest pain, palpitations, syncope, dyspnea on exertion, orthopnea, edema, cyanosis, heart murmur Rhythm: Present: abnormal rhythm (upon admission to outpatient observation.) Vascular: Absent: intermittent claudication, pedal edema, unilateral swelling - Respiratory Respiratory: Absent: cough, dyspnea, hemoptysis, dyspnea on exertion, wheezing, pain on inspiration, chest congestion, excessive phlegm production - Gastrointestinal Gastrointestinal: Absent: abdominal pain, change in bowel habits, constipation, diarrhea, dyspepsia, dysphagia, early satiety, hematochezia, melena, nausea, vomiting - Musculoskeletal Musculoskeletal: Present: myalgias. Absent: abnormal gait, arthralgias, back pain, joint swelling, limited range of motion, muscle weakness - Integumentary/Breasts Integumentary: Absent: alopecia, erythema, lesions, pruritus, rash, jaundice - Neurological Neurological: Present: weakness. Absent: abnormal gait, abnormal movements, abnormal speech, confusion, convulsions, dizziness, focal weakness, frequent falls, headache(s), loss of vision, memory loss, numbness, paresthesias, tremor( s) - Psychiatric Psychiatric: Absent: abnormal sleep pattern, anxiety, depression - Endocrine Endocrine: Absent: cold intolerance, flushing, heat intolerance, palpitations - Hematologic/Lymphatic Hematologic/Lymphatic: Absent: easy bleeding, easy bruising, lymphadenopathy - Allergic/Immunologic Allergic/Immunologic: Absent: urticaria Medications Home Medications Medication Instructions Recorded Confirmed Type Crestor (rosuvastatin) 5 mg tablet 2.5 mg PO QOD #0 tab 06/04/17 10/01/17 History cholecalciferol (vitamin D3) 2,000 2,000 unit PO DAILY cap 06/04/17 10/01/17 History unit capsule muqzoqxr-zbv-cmzco acid 0.4 1 tab PO QAM 06/04/17 10/01/17 History mg-lycopene 300 mcg-lutein 250 mcg tablet vitamin B complex tablet 1 tab-cap PO DAILY tab 06/04/17 10/01/17 History Tamsulosin HCl 0.4 mg PO HS 09/28/17 10/01/17 History Mirabegron [Myrbetriq] 25 mg PO DAILY #90 tab.er.24h 10/01/17 Rx Amiodarone [Pacerone] 200 mg PO DAILY #30 tab 12/26/17 Rx Apixaban [Eliquis] 5 mg PO BID #60 tab 12/26/17 Rx Carvedilol [Coreg] 3.125 mg PO BIDWM #30 tab 12/26/17 Rx Furosemide [Lasix] 40 mg PO DAILY #30 tab 12/26/17 Rx SACUBITRIL/VALSARTAN 24/26mg 1 tab PO BID #60 tab 12/26/17 Rx [ENTRESTO 24/26mg] Spironolactone [Aldactone] 25 mg PO DAILY #25 tab 12/26/17 Rx Allergies Allergy/AdvReac Type Severity Reaction Status Date / Time simvastatin Allergy Unknown JOINT/MUSCLE Verified 10/01/17 11:57 ACHES hydrocodone AdvReac Severe NAUSEA,DRY Verified 10/01/17 11:57 HEAVES atorvastatin AdvReac Intermediate joint/muscle Verified 10/01/17 11:57 aches Lipitor Allergy Unknown Uncoded 12/10/17 15:06 Zocor Allergy Unknown Uncoded 12/10/17 15:06 Results IRU - Labs Labs: Have reviewed extensive notes and reports from his recent outpatient observation Exam Vital Signs: Temperature 98.1 F 12/27/17 08:00 Pulse Rate 99 12/27/17 08:00 Respiratory Rate 18 12/27/17 08:00 Blood Pressure 102/57 12/27/17 08:00 Pulse Oximetry 95 12/27/17 08:00 Height/Weight/BMI: Height 1.75 m Weight 95.5 kg Body Mass Index 31.1 - Constitutional Present: no acute distress, well nourished, well developed, average body habitus , obese, cooperative - Routine HEENT Exam Head: Present: normocephalic, atraumatic. Absent: cushingoid faces, abrasion, laceration, hematoma Eye: Present: EOMI, PERRL. Absent: conjunctival icterus, scleral injection, periorbital swelling, nystagmus ENT: Present: mucous membranes moist, oropharynx clear - Routine Neck Exam Present: supple, full ROM, trachea midline. Absent: lymphadenopathy, thyromegaly, tenderness, swelling - Routine Chest/Breast/Axilla Exam Chest wall: Absent: tenderness, mass Axillae: Absent: lymphadenopathy, mass - Routine Respiratory Exam Present: CTA bilaterally. Absent: accessory muscle use, decreased breath sounds , prolonged expiratory phase, rales, respiratory distress, rhonchi, stridor, wheezes, crackles, distant breath sounds - Routine Cardiovascular Exam Present: RRR, S1, S2, no murmur. Absent: gallop, S3, S4, click, irregular rhythm - Routine Abdominal Exam Present: soft, normoactive bowel sounds, non distended, non tender. Absent: rebound, guarding, firm, rigid, organomegaly, mass, hernia, wound Comments: G-tube in central upper abdomen sutured in place. Noninflamed and noninfected. - Routine Extremities Exam Present: no edema, non tender, pulses intact, normal capillary refill. Absent: cyanosis, clubbing - Routine Back/Spine/Pelvis Exam Back/Spine: Present: full ROM. Absent: scoliosis, kyphosis - Routine Skin Exam Present: intact, dry, warm. Absent: cyanosis, erythema, pallor, mottling, petechiae, urticaria, lesions, jaundice - Routine Neurological Exam Present: alert, oriented X3, CN II-XII intact, moving all extremities, normal speech - Routine Psychiatric Exam Present: normal affect, normal thought process, cooperative, good insight, good judgment. Absent: depressed, anxious Sepsis Assessment - Evaluation Severe Sepsis: none seen IRU A/P (1) Atrial flutter with rapid ventricular response Current visit: No Status: Acute Patient has had a recent episode of atrial flutter with rapid ventricular response. He has undergone successful cardioversion. However he is at risk for recurrence and will be monitored carefully in this regard. (2) Acute systolic (congestive) heart failure Current visit: No Status: Acute Has evidence of acute systolic heart failure with ejection fraction 35%. Patient is being followed by cardiology. (3) Pleural effusion on right Problem details: Post op Current visit: No Status: Acute Patient has no abnormal chest x-ray with crowding of structures, atelectasis and probable pleural effusion on the right. This may be related to his recent esophageal surgery but will be monitored. (4) Esophageal cancer Qualifiers: Malignant neoplasm of esophagus location: unspecified location Qualified Code(s): C15.9 - Malignant neoplasm of esophagus, unspecified Problem details: S/P resection of distal esophagus/prox stomach Current visit : No Status: Chronic DVT Prophylaxis: SCD's, Lovenox Resuscitation Status: Full Code - Course Hospital Course: John Mak MD: - Interventions to Obtain Goals PT Treatment Plan: Balance/Proprioception, Functional Activities, Gait Training , Patient/Family Education, Therapeutic Exercise Goals Progress/Modifications: This patient is debilitated from recent episode of atrial fibrillation/flutter with rapid ventricular response. He has an ejection fraction around 35% contributing to his weakness and dyspnea. In addition he is recovering from esophagectomy. He requires medical supervision in view of starting his anticoagulant therapy, monitoring his heart rhythm and cardiac status and overall debility. A multidisciplinary approach will be undertaken with PT, OT, 24 hour rehabilitation nursing and medical supervision.
--- NOTE | 2017-12-27 18:41 | Consult Note ---
Consult Information - Data of Consult Requesting Physician: John Mak MD Primary Care Provider: Gonzalez Richard MD Family Provider: Gonzalez Richard MD - Consult Narrative Reason for consult: Medical Management History of present illness: Patient is an 82-year-old male who had an esophagectomy on 11/30/[address] Fitzgerald and Dr. Rodriguez for esophageal cancer. He had previously had radiation to shrink the tumor through Dr. Ahmadi. reports he spent about a week in ICU and a week on the medical floor and was discharged home. She reports he had recovered very nicely from his surgery. Then on 12/24/17 he went to see his PCP, Dr. Gonzalez Richard, who noted patient was in atrial fibrillation with RVR. Patient was having shortness of breath and fatigue. Patient was directly admitted to [facility] under the care of Dr. Casas. Patient had a successful DC cardioversion on 12/24/17. He has continued to remain in normal sinus rhythm. Upon dismissal from his most recent hospital stay, he was admitted to IRU for further strengthening before returning home. At this time, Dr. Mak has consult the hospitalist team to manage his medical problems during his stay. We appreciate the consult. Patient is seen in his room laying in bed before dinner this evening. His is bedside. He reports he is feeling very well. He had a good nap this afternoon because therapy wore him out. He has had chest tightness ever since his esophagectomy, but no chest pain or shortness of breath. He has been eating without any problems. He is to avoid pork, beef, and bread. His G tube remains in place. His reports that the surgeon wanted it to stay in for at least a month post surgery before they remove it. Past Medical History Medical History Esophageal cancer-S/P resection of distal esophagus/proximal stomach Lumbar Spinal stenosis Benign prostatic hyperplasia Hypercholesterolemia Medical History Updates: Atrial fibrillation with RVR - s/p DC cardioversion maintaining normal sinus rhythm (12/24/17) Surgical History: Hiatal hernia repair 1984. Left knee arthroscopy 1994. Left TKR ([facility]yler) 12/2011. TURBT with Mitomycin C ([facility]) 01/2013, repeat 07/2013. L4-L5 , L5-S1 laminoforaminotomy 07/2015. Colonscopy 1997, 04/2004 (10). Esophagectomy 11/2017 ([facility]ia) Family History: Family History (Last Updated 06/04/17 @ 11:30 by lOya Frye LPN) Father , at age 71 CVA (cerebral vascular accident) Mother , in her 70's Leukemia Family History Updates: Reviewed - Social History Smoking status: Former smoker (patient smoked for 5 years from age [age]) Substance use type: does not use Alcohol intake frequency: a few times a month (occasionally drinks wine) Household members: spouse Current occupational status: retired Current residence: Apartment/Private Home Social history: PCP-Dr. Richard Patient lives at home with his Review of Systems All systems PM: 10-point ROS was reviewed, no additional remarkable complaints except (chest tightness since surgery, weakness related to recent hospitalization) Medications Home Medications Medication Instructions Recorded Confirmed Type Crestor (rosuvastatin) 5 mg tablet 2.5 mg PO QOD #0 tab 06/04/17 10/01/17 History cholecalciferol (vitamin D3) 2,000 2,000 unit PO DAILY cap 06/04/17 10/01/17 History unit capsule woeuruwz-fvq-tgdvi acid 0.4 1 tab PO QAM 06/04/17 10/01/17 History mg-lycopene 300 mcg-lutein 250 mcg tablet vitamin B complex tablet 1 tab-cap PO DAILY tab 06/04/17 10/01/17 History Tamsulosin HCl 0.4 mg PO HS 09/28/17 10/01/17 History Mirabegron [Myrbetriq] 25 mg PO DAILY #90 tab.er.24h 10/01/17 Rx Amiodarone [Pacerone] 200 mg PO DAILY #30 tab 12/26/17 Rx Apixaban [Eliquis] 5 mg PO BID #60 tab 12/26/17 Rx Carvedilol [Coreg] 3.125 mg PO BIDWM #30 tab 12/26/17 Rx Furosemide [Lasix] 40 mg PO DAILY #30 tab 12/26/17 Rx SACUBITRIL/VALSARTAN 24/26mg 1 tab PO BID #60 tab 12/26/17 Rx [ENTRESTO 24/26mg] Spironolactone [Aldactone] 25 mg PO DAILY #25 tab 12/26/17 Rx Allergies Allergy/AdvReac Type Severity Reaction Status Date / Time simvastatin Allergy Unknown JOINT/MUSCLE Verified 10/01/17 11:57 ACHES hydrocodone AdvReac Severe NAUSEA,DRY Verified 10/01/17 11:57 HEAVES atorvastatin AdvReac Intermediate joint/muscle Verified 10/01/17 11:57 aches Lipitor Allergy Unknown Uncoded 12/10/17 15:06 Zocor Allergy Unknown Uncoded 12/10/17 15:06 Exam Vital Signs: Temperature 98.5 F 12/27/17 16:00 Pulse Rate 85 12/27/17 16:00 Respiratory Rate 16 12/27/17 16:00 Blood Pressure 118/60 12/27/17 16:00 Pulse Oximetry 90 12/27/17 16:00 Height/Weight/BMI: Height 1.75 m Weight 95.5 kg Body Mass Index 31.1 - Constitutional Present: no acute distress, well nourished, well developed - Routine HEENT Exam Head: Present: normocephalic, atraumatic Eye: Present: EOMI, PERRL ENT: Present: mucous membranes moist, oropharynx clear - Routine Neck Exam Absent: lymphadenopathy - Routine Respiratory Exam Present: CTA bilaterally. Absent: wheezes - Routine Cardiovascular Exam Present: RRR, no murmur - Routine Abdominal Exam Present: soft, normoactive bowel sounds, surgical scars, drain (G tube). Absent : tenderness, distended - Routine Extremities Exam Present: edema (1+ edema bilaterally left greater than right), normal capillary refill - Routine Skin Exam Present: dry, warm - Routine Neurological Exam Present: alert, oriented X3, CN II-XII intact, moving all extremities, normal tone - Routine Psychiatric Exam Present: normal affect, normal thought process, cooperative Results - Labs CBC & Chem 7: 12/27/17 04:16 12/27/17 04:16 Assessment and Plan Assessment and Plan: Assessment Atrial flutter with RVR - s/p DC cardioversion maintaining normal sinus rhythm ( 12/24/17) Chronic anticoagulation Esophageal cancer-S/P resection of distal esophagus/proximal stomach Systolic heart failure-ejection fraction 35% Normocytic anemia Lumbar Spinal stenosis Benign prostatic hyperplasia Hypercholesterolemia Plan Agree with admission to IRU for further strengthening. Pain control and rehabilitation therapies per Dr. Mak. His hemoglobin was 9.5 on admission. Prior to admission for his esophageal surgery hemoglobin was 12.1. He ranged from 9.3-10.2 during his recent hospitalization. Continue to monitor periodically, especially given the initiation of anticoagulation in light of his recent atrial flutter. Monitor I's and O's given his systolic heart failure. Medications, labs, vital signs are reviewed. Care will return to Dr. Richard upon dismissal. Hospitalist team will continue to follow patient along with you during his stay. Will check iron panel, B12 and folate levels. -Dr. Mcdonald Resuscitation Status: Full Code - Physician Narrative Physician: Kasie Mcdonald MD Narrative: Date: 12/27/17 Time: 1831 Hospital Course Summary Disclaimer: The visit summary below is not to be considered part of the above Progress Note. Hospital Course: 12/27/17-hospitalist consult Agree with admission to IRU for further strengthening. Pain control and rehabilitation therapies per Dr. Mak. His hemoglobin was 9.5 on admission. Prior to admission for his esophageal surgery hemoglobin was 12.1. He ranged from 9.3-10.2 during his recent hospitalization. Continue to monitor periodically, especially given the initiation of anticoagulation in light of his recent atrial flutter. Medications, labs, vital signs are reviewed. Care will return to Dr. Richard upon dismissal. Hospitalist team will continue to follow patient along with you during his stay.
[2017-12-27] MEDS: TAMSULOSIN 0.4 MG CAPSULE PO SCH (21:09)
[2017-12-28] MEDS: ACETAMINOPHEN 325 MG TABLET PO PRN (06:44)
[2017-12-28] MEDS: SACUBITRIL/VALSARTAN 24/26mg TABLET PO SCH ×2 (09:34→20:02)
[2017-12-28] MEDS: FUROSEMIDE 40 MG TABLET PO SCH (09:34)
[2017-12-28] MEDS: APIXABAN 5 MG TABLET PO SCH ×2 (09:34→20:02)
[2017-12-28] MEDS: CARVEDILOL 3.125 MG TABLET PO SCH ×2 (09:34→18:05)
[2017-12-28] MEDS: SPIRONOLACTONE 25 MG TABLET PO SCH (09:35)
[2017-12-28] MEDS: AMIODARONE 200 MG TABLET PO SCH (09:35)
[2017-12-28] MEDS: ROSUVASTATIN 5 MG TABLET PO SCH (09:37)
--- NOTE | 2017-12-28 10:40 | IRU Progress Note ---
- Subjective/Serverity of Illness Date: 12/28/17 Mr. López is very awake and alert and talkative. He states that he feels well. He denies any shortness of breath at present. He does report that he has had constipation although that was relieved this morning. He states that he would like to go home. He did have a cough in the middle the night and brought up some sputum but that has resolved. He denies any abdominal pain and denies any dysphagia. He is progressing with therapy nicely. With regard to medical issues he does have systolic heart failure with ejection fraction around 35%. He has had no known recurrence of his atrial fib/flutter. Exam Vital Signs: Temperature 97.3 F 12/28/17 08:00 Pulse Rate 82 12/28/17 08:00 Respiratory Rate 24 12/28/17 08:00 Blood Pressure 121/65 12/28/17 08:00 Pulse Oximetry 90 12/28/17 08:00 Height/Weight/BMI: Height 1.75 m Weight 95.5 kg Body Mass Index 31.1 - Constitutional Present: no acute distress, well nourished, well developed, cooperative - Routine HEENT Exam Eye: Present: EOMI ENT: Present: mucous membranes moist, oropharynx clear - Routine Neck Exam Present: supple - Routine Respiratory Exam Present: CTA bilaterally. Absent: wheezes - Routine Cardiovascular Exam Present: RRR, S1, S2. Absent: murmur - Routine Abdominal Exam Present: soft, normoactive bowel sounds, non distended. Absent: tenderness - Routine Extremities Exam Present: no edema - Routine Skin Exam Present: dry, warm - Routine Neurological Exam Present: alert, oriented X3, CN II-XII intact - Routine Psychiatric Exam Present: normal affect IRU A/P (1) Atrial flutter with rapid ventricular response Current visit: No Status: Acute At the present time the patient is not developed recurrent atrial flutter. He denies any palpitations. He appears to be stable from a rhythm standpoint at present. (2) Acute systolic (congestive) heart failure Current visit: No Status: Acute Recent echocardiogram is demonstrated reduced ejection fraction of 35%. His lungs remain clear. Does have easy fatigability without gross shortness of breath. (3) Pleural effusion on right Problem details: Post op Current visit: No Status: Acute (4) Esophageal cancer Qualifiers: Malignant neoplasm of esophagus location: unspecified location Qualified Code(s): C15.9 - Malignant neoplasm of esophagus, unspecified Problem details: S/P resection of distal esophagus/prox stomach Current visit : No Status: Chronic DVT Prophylaxis: SCD's, Lovenox Resuscitation Status: Full Code - Course Hospital Course: John Mak MD: 12/28/17 10:38 Patient is tolerating therapy well. Denies dyspnea. Appetite is good. Telemetry in place without evidence of atrial fibrillation or flutter ([facility] PAC' s only) 12/28/17 10:43 - Interventions to Obtain Goals PT Treatment Plan: Balance/Proprioception, Functional Activities, Gait Training , Patient/Family Education, Therapeutic Exercise OT Treatment Plan: ADL (Basic Care), Balance Training, Pt./Family Education, Ther. Exercise for ADL
--- NOTE | 2017-12-28 11:37 | IRU Plan of Care ---
[facility] Overall Plan of Care - Date Date: 12/28/17 - Patient Impairments (1) Atrial flutter with rapid ventricular response Code(s): I48.92 - Unspecified atrial flutter Status: Acute Classification: IRF Tx That Should Address Diagnosis, Diagnosis Requiring Medical Follow Up (2) Acute systolic (congestive) heart failure Code(s): I50.21 - Acute systolic (congestive) heart failure Status: Acute Classification: Present on IRF Admission, IRF Tx That Should Address Diagnosis, Diagnosis Requiring Medical Follow Up (3) Pleural effusion on right Code(s): J90 - Pleural effusion, not elsewhere classified Status: Acute Classification: Present on IRF Admission, IRF Tx That Should Address Diagnosis, Diagnosis Requiring Medical Follow Up (4) Esophageal cancer Qualifiers: Malignant neoplasm of esophagus location: unspecified location Qualified Code(s): C15.9 - Malignant neoplasm of esophagus, unspecified Code(s): C15.9 - Malignant neoplasm of esophagus, unspecified Status: Chronic Classification: IRF Tx That Should Address Diagnosis, Diagnosis Requiring Medical Follow Up - Relevant Changes Relevant Changes: No Reviewed: I have reviewed the patient's information and concur with the finding and results of the pre-admission screen. Certification: I certify the patient for rehabilitation. - Medical Prognosis Medical Prognosis: Good Vital Signs: Last Vital Signs Temp 97.3 F 12/28/17 08:00 Pulse 82 12/28/17 08:00 Resp 24 12/28/17 08:00 BP 121/65 12/28/17 08:00 Pulse Ox 90 12/28/17 08:00 - Anticipated Interventions Anticipated Interventions: The patient requires inpatient IRF care for PT, OT, and/or ST for residuals remaining from recent atrial flutter with RVR and cardioversion and systolic heart failure resulting in muscular weakness and strength deficits. An individualized overall plan of care has been developed after careful review of the patient's preadmission screening, post admission physician evaluation and assessments of all therapy disciplines and/or other pertinent clinicians involved in treating the patient. This indicates medical necessity and rehabilitation necessity have been established through a thorough review of all available medical information. - Current Functional Status Failed Alternative Therapy: Arrived from Acute Care Patient Requires: The patient requires oversight by rehabilitation physician to manage their rehabilitation treatment plan and multidisciplinary approach to care that can only be provided in an IRF and requires a multidisciplinary approach to care, provided by professional PTs, OTs, STs, rehabilitation nurses, and may require STs, dieticians, and RTS. This is not available in lesser levels of care. Physical Therapy Minutes: 90 Occupational Therapy Minutes: 90 Therapy: The patient is to receive therapy at least 5 days a week. - Anticipated LOS/Outcomes Anticipated Functional Outcome: It is anticipated the patient will be able to return to his home, eating and drinking adequately and was no evidence of atrial flutter with rapid ventricular response. It is anticipated he will be able to return home at modified independent level of functioning or better for ambulation and ADL's. Anticipated DC Destination: Home, Self Care, Home Health Service Home Safety Plan: The patient will be provided with the development of a Home Safety Plan for return to a home or home-like environment and and to ensure safety post discharge. - Plan to Avoid Complications Barriers to Attaining Goals: Weakness, Endurance, Medical Limitation (CHF) Plan to Avoid Complications: The patient cannot receive this care in a lesser intensive setting such as Halfway or Outpatient Therapy due to the patient requiring the following : The patient requires continued telemetry and 24 rehabilitation nursing monitoring of his cardiac status to ensure no exacerbation of his acute systolic heart failure nor recurrence of his atrial flutter with rapid ventricular response. He requires a multidisciplinary approach with PT and OT to allow him to return to his previous level of functioning.
[2017-12-28] MEDS: TAMSULOSIN 0.4 MG CAPSULE PO SCH (20:02)
[2017-12-29] MEDS: FUROSEMIDE 40 MG TABLET PO SCH (08:11)
[2017-12-29] MEDS: SACUBITRIL/VALSARTAN 24/26mg TABLET PO SCH ×2 (08:11→20:07)
[2017-12-29] MEDS: SPIRONOLACTONE 25 MG TABLET PO SCH (08:11)
[2017-12-29] MEDS: APIXABAN 5 MG TABLET PO SCH ×2 (08:12→20:08)
[2017-12-29] MEDS: AMIODARONE 200 MG TABLET PO SCH (08:12)
[2017-12-29] MEDS: CARVEDILOL 3.125 MG TABLET PO SCH ×2 (08:12→17:40)
[2017-12-29] MEDS: TAMSULOSIN 0.4 MG CAPSULE PO SCH (20:07)
[2017-12-30] MEDS: SACUBITRIL/VALSARTAN 24/26mg TABLET PO SCH ×2 (08:18→21:28)
[2017-12-30] MEDS: CARVEDILOL 3.125 MG TABLET PO SCH ×2 (08:19→17:28)
[2017-12-30] MEDS: SPIRONOLACTONE 25 MG TABLET PO SCH (08:19)
[2017-12-30] MEDS: APIXABAN 5 MG TABLET PO SCH ×2 (08:19→21:28)
[2017-12-30] MEDS: FUROSEMIDE 40 MG TABLET PO SCH (08:19)
[2017-12-30] MEDS: AMIODARONE 200 MG TABLET PO SCH (08:19)
[2017-12-30] MEDS: ROSUVASTATIN 5 MG TABLET PO SCH (08:19)
[2017-12-30] MEDS: TAMSULOSIN 0.4 MG CAPSULE PO SCH (21:28)
[2017-12-31] MEDS: ACETAMINOPHEN 325 MG TABLET PO PRN (04:18)
[2017-12-31] MEDS: FUROSEMIDE 40 MG TABLET PO SCH (08:38)
[2017-12-31] MEDS: SPIRONOLACTONE 25 MG TABLET PO SCH (08:38)
[2017-12-31] MEDS: AMIODARONE 200 MG TABLET PO SCH (08:39)
[2017-12-31] MEDS: CARVEDILOL 3.125 MG TABLET PO SCH ×2 (08:39→17:35)
[2017-12-31] MEDS: APIXABAN 5 MG TABLET PO SCH ×2 (08:39→20:47)
[2017-12-31] MEDS: SACUBITRIL/VALSARTAN 24/26mg TABLET PO SCH (08:39)
--- NOTE | 2017-12-31 10:27 | IRU Progress Note ---
- Subjective/Serverity of Illness Date: 12/31/17 Mr. López was interviewed and examined in his room. He was working with physical therapy in the gymnasium. He began doing stairs. He felt lightheaded rather suddenly. He denied any chest pain but did report some abdominal discomfort. He has had no nausea no vomiting and apparently ate okay this morning. He has had no evidence of acute blood loss although hemoglobin did drop from 9.5 down to 8.8 this morning. His blood pressure dropped to 90/53 and 68/45. He was brought back to his room in a wheelchair and upon lying down he felt much better. He denies any shortness of breath or cough. He would like something for reflux. Does have history of esophagectomy. He is on no PPI nor H2 regan at present. He says he has severe reflux when he lies down at night which is abated if he sits up. We will start some omeprazole. Brief update on therapy progress: Upper body dressing is standby assist. Lower body dressing improved from minimum assistance to standby assistance. Transfers in general are modified independent level. For physical therapy requires verbal cueing using a front-wheeled walker for hand placement. He is able to ambulate 172 feet with standby assistance. Update on medical problems we are actively monitoring or managing as follows: 1. Acute systolic heart failure with ejection fraction 35%: Lungs remain clear at the present time. However his reduced ejection fraction likely plays a role in his hypotension today. 2. Recent atrial flutter with rapid ventricular response, status post cardioversion: Based on physical exam, he is not in atrial fibrillation nor flutter and has a regular rhythm which is not tachycardic at present. He is on telemetry. 3. Recent esophagectomy presumably for malignancy: He does report reflux symptoms. Has some abdominal discomfort although not severely so. Exam Vital Signs: Temperature 97.5 F 12/31/17 07:45 Pulse Rate 95 12/31/17 09:35 Respiratory Rate 16 12/31/17 07:45 Blood Pressure 68/45 12/31/17 09:35 Pulse Oximetry 90 12/31/17 07:45 Height/Weight/BMI: Height 1.75 m Weight 95.5 kg Body Mass Index 31.1 - Constitutional Present: mild distress (was lightheaded with standing. Feels better now. No chest pain.), well nourished, well developed, obese, cooperative - Routine HEENT Exam Head: Present: normocephalic Eye: Present: EOMI ENT: Present: mucous membranes moist, oropharynx clear - Routine Neck Exam Present: supple - Routine Respiratory Exam Present: CTA bilaterally. Absent: wheezes - Routine Cardiovascular Exam Present: RRR, S1, S2. Absent: murmur - Routine Abdominal Exam Present: soft, normoactive bowel sounds, tenderness (minimal tenderness in epigastrium. No rebound and bowel sounds are normoactive.), non distended - Routine Extremities Exam Present: no edema - Routine Skin Exam Present: dry, warm - Routine Neurological Exam Present: alert, oriented X3, CN II-XII intact - Routine Psychiatric Exam Present: normal affect, cooperative Results IRU - Labs Labs: Reviewed therapy notes, chart data and blood work. IRU A/P (1) Atrial flutter with rapid ventricular response Current visit: No Status: Acute No recurrence has been identified of his arrhythmia. We will continue to monitor carefully. (2) Acute systolic (congestive) heart failure Current visit: No Status: Acute He is noted to have acute systolic heart failure. His lungs remain clear. He is on multiple agents at present. (3) Pleural effusion on right Problem details: Post op Current visit: No Status: Acute (4) Esophageal cancer Qualifiers: Malignant neoplasm of esophagus location: unspecified location Qualified Code(s): C15.9 - Malignant neoplasm of esophagus, unspecified Problem details: S/P resection of distal esophagus/prox stomach Current visit : No Status: Chronic (5) GERD (gastroesophageal reflux disease) Qualifiers: Esophagitis presence: esophagitis presence not specified Qualified Code(s) : K21.9 - Gastro-esophageal reflux disease without esophagitis Current visit: Yes Status: Acute He reports symptoms consistent with reflux. We will add on omeprazole. (6) Hypotension Qualifiers: Hypotension type: unspecified hypotension type Qualified Code(s): I95.9 - Hypotension, unspecified Current visit: Yes Status: Acute Has episode of hypotension this morning which is resolving. This was when he was up and about. We will discuss with the hospitalist service as well as repeat hemoglobin tomorrow. (7) Anemia Qualifiers: Anemia type: unspecified type Qualified Code(s): D64.9 - Anemia, unspecified Current visit: Yes Status: Acute Hemoglobin did drop from 9.5 down to 8.8. Will monitor carefully. DVT Prophylaxis: SCD's, Lovenox Resuscitation Status: Full Code - Course Hospital Course: John Mak MD: 12/28/17 10:38 Patient is tolerating therapy well. Denies dyspnea. Appetite is good. Telemetry in place without evidence of atrial fibrillation or flutter ([facility] PAC' s only) 12/28/17 10:43 12/31/17 10:29 Hypotensive spell this morning. Resolved with lying supine. Hemoglobin dropped to 8.8. Reflux symptoms reported last night and recently. Will add omeprazole. - Interventions to Obtain Goals PT Treatment Plan: Balance/Proprioception, Functional Activities, Gait Training , Patient/Family Education, Therapeutic Exercise OT Treatment Plan: ADL (Basic Care), Balance Training, Pt./Family Education, Ther. Exercise for ADL Goals Progress/Modifications: Time spent with patient and on floor reviewing data and documentin min Medical decision-making: Patient with episode of hypotension this morning while he was up and about. Blood pressure go down to about 68. He denies any chest pain but reported some abdominal "tightness." His abdomen is slightly tender but without rebound and bowel sounds are normoactive. Denies any nausea or vomiting and he apparently ate okay this morning. We will monitor as well as repeat hemoglobin tomorrow in view of his anemia down to 8.8 g percent. I will also discuss with the hospitalist service. Secondly, the patient has symptoms of reflux. We will add on omeprazole.
--- NOTE | 2017-12-31 11:25 | Progress Note ---
- Date 12/31/17 Subjective: Patient was seen today lying down in his bed after therapy. During therapy, while doing stairs, he suddenly developed lightheadedness. He denied chest pain and shortness of breath, did have some abdominal discomfort. His blood pressure at the time was 68/45. After lying down it was 103/57. Was repeated again later and was 90/53 sitting. At the time of my visit he states he feels fine. No lightheadedness, just feels "relaxed." He ate a good breakfast, but reports he only drank a few sips of water and coffee. He ate a good supper last night and states he was drinking sips of water throughout the night. Objective Vital signs: Temperature 97.5 F 12/31/17 07:45 Pulse Rate 95 12/31/17 09:35 Respiratory Rate 16 12/31/17 07:45 Blood Pressure 78/44 12/31/17 10:36 Pulse Oximetry 90 12/31/17 07:45 Height/Weight/BMI: Height 1.75 m Weight 95.5 kg Body Mass Index 31.1 - Constitutional Present: no acute distress, well nourished, well developed - Routine HEENT Exam Head: Present: normocephalic, atraumatic - Routine Respiratory Exam Present: CTA bilaterally. Absent: wheezes - Routine Cardiovascular Exam Present: RRR, no murmur - Routine Abdominal Exam Present: soft, non distended - Routine Extremities Exam Present: edema (1+ pedal), normal capillary refill - Routine Skin Exam Present: dry, warm - Routine Neurological Exam Present: alert, oriented X3 - Routine Lymphatic Exam Lymphatic: Absent: adenopathy - Routine Psychiatric Exam Present: normal affect, cooperative Results - Labs CBC & Chem 7: 12/31/17 03:57 12/27/17 04:16 Assessment and Plan Assessment and Plan: Assessment Hypotension-12/31/17 Atrial flutter with RVR - s/p DC cardioversion maintaining normal sinus rhythm ( 12/24/17) Chronic anticoagulation Esophageal cancer-S/P resection of distal esophagus/proximal stomach Systolic heart failure-ejection fraction 35% Normocytic anemia Lumbar Spinal stenosis Benign prostatic hyperplasia Hypercholesterolemia Plan Reviewed telemetry-normal sinus rhythm. Start normal saline 250 per hour 2 hours for hypotension. Hold Lasix and Entresto. Check BMP in a.m. Mild hemoglobin drop 9.5-->8.8. Repeat CBC tomorrow. Chest check daily weights. Monitor I's and O's given his systolic heart failure. PPI started for nocturnal reflux. Case discussed with Dr. Lynn and Dr. Mak. - Physician Narrative Narrative: Date: 12/31/17 Time: 1118 Hospital Course Summary Disclaimer: The visit summary below is not to be considered part of the above Progress Note. Hospital Course: 12/27/17-hospitalist consult Agree with admission to IRU for further strengthening. Pain control and rehabilitation therapies per Dr. Mak. His hemoglobin was 9.5 on admission. Prior to admission for his esophageal surgery hemoglobin was 12.1. He ranged from 9.3-10.2 during his recent hospitalization. Continue to monitor periodically, especially given the initiation of anticoagulation in light of his recent atrial flutter. Medications, labs, vital signs are reviewed. Care will return to Dr. Richard upon dismissal. Hospitalist team will continue to follow patient along with you during his stay. 12/31/17 Reviewed telemetry-normal sinus rhythm. Start normal saline 250 per hour 2 hours for hypotension. Hold Lasix and Entresto. Check BMP in a.m. Mild hemoglobin drop 9.5-->8.8. Repeat CBC tomorrow. Chest check daily weights. Monitor I's and O's given his systolic heart failure. PPI started for nocturnal reflux. Case discussed with Dr. Lynn and Dr. Mak.
--- NOTE | 2017-12-31 14:05 | IRU Team Meeting ---
IRU Team Meeting - Nursing Bladder Assistive Devices Utilized:: Urinal, Absorbent Pad Bladder Management Level of Assist: Stand By Assist/Supervision Bladder Frequency of Accidents: No accidents Vital Signs: Vital Signs - 24 hr 12/30/17 16:00 12/30/17 19:42 12/31/17 07:45 Temperature 98.0 F 96.8 F 97.5 F Pulse Rate 77 76 79 Respiratory Rate 18 24 16 Blood Pressure 128/67 114/58 137/67 Pulse Oximetry 93 95 90 12/31/17 08:00 12/31/17 09:30 12/31/17 09:35 Temperature Pulse Rate 82 86 95 Respiratory Rate Blood Pressure 90/53 68/45 Pulse Oximetry 12/31/17 10:35 12/31/17 10:36 12/31/17 13:23 Temperature Pulse Rate Respiratory Rate Blood Pressure 103/57 78/44 106/51 Pulse Oximetry 12/31/17 13:24 Temperature Pulse Rate Respiratory Rate Blood Pressure 92/48 Pulse Oximetry Current Medications: Acetaminophen (Tylenol) 650 mg PO Q5H PRN PRN Reason: Fever Last Admin: 12/31/17 04:18 Dose: 650 mg Amiodarone HCl (Pacerone) 200 mg PO DAILY [facility] Last Admin: 12/31/17 08:39 Dose: 200 mg Apixaban (Eliquis) 5 mg PO BID [facility] Last Admin: 12/31/17 08:39 Dose: 5 mg Carvedilol (Coreg) 3.125 mg PO BIDWM [facility] Last Admin: 12/31/17 08:39 Dose: 3.125 mg Furosemide (Lasix) 40 mg PO DAILY [facility] Last Admin: 12/31/17 08:38 Dose: 40 mg Omeprazole (Prilosec) 20 mg PO [facility] Rosuvastatin Calcium (Crestor) 2.5 mg PO Q2D [facility] Last Admin: 12/30/17 08:19 Dose: 2.5 mg Sacubitril/Valsartan (Entresto 24/26mg) 1 tab PO BID [facility] Last Admin: 12/31/17 08:39 Dose: 1 tab Spironolactone (Aldactone) 25 mg PO DAILY [facility] Last Admin: 12/31/17 08:38 Dose: 25 mg Tamsulosin HCl (Flomax) 0.4 mg PO [facility] Last Admin: 12/30/17 21:28 Dose: 0.4 mg Current Medical Issues: History of atrial flutter with rapid ventricular response, status post cardioversion, congestive heart failure, systolic with reduced ejection fraction , esophagectomy, symptoms of reflux esophagitis, anemia, orthostatic hypotension Comments: I certify that I personally led the interdisciplinary team meeting and agree with comments, barriers and goals indicated. Team meeting was held in the patient's room with the patient and the following family members present: patient's , patient's daughter Mr. López has developed orthostatic hypotension today. He is currently receiving 500 ML of IV fluids. He is feeling better and his orthostasis is much improved. Denies any chest pain. Has reported symptoms consistent with reflux and omeprazole is ordered. He has maintained normal sinus mechanism. - Physical Therapy Bed, Chair, Wheelchair Transfer Assist: Independent Ambulation Ability: Stand By Assist/Supervision, Household Exception Ambulation Distance: 127 Wheelchair Propulsion Ability: Total Assistance Wheelchair Propulsion Distance: 45 Stair Climbing Ability: Stand By Assist/Supervision, Household Exception Number of Steps Climbed: 8 Car Transfer Ability: Stand By Assist/Supervision, 1 Person Assist Comments: Patient does have evidence of decreased activity tolerance and requires increased rest breaks. He is making progress. Blood pressure being low has interrupted therapy today. - Occupational Therapy Eating Ability: Independent Grooming Ability: Stand By Assist/Supervision Bathing Ability: Stand By Assist/Supervision Upper Body Dressing Ability: Modified Independent Lower Body Dressing Ability: Modified Independent Tub Transfer Assist: Patient Refuses Toileting Assist: Stand By Assist/Supervision Toilet Transfer Assist: Stand By Assist/Supervision Comments: Patient has been progressing with occupational therapy goals. Therapy held at the present time secondary to hypotension. - Goals Physical Therapy Goals: 12/31/17. 1: 60 min of activity with 2 rest breaks. 2: Increase ambulation distance to 200 ft. Occupational Therapy Goals: OT goals 12/31/17: 1.) Toileting with modified independence. - Barriers to Discharge Barriers to Attaining Goals: Weakness (progressive resistive exercises are provided.), Medical Limitation (hypotension today: Patient has received 500 ML of IV fluids.), Other (activity tolerance is reduced. He is undergoing endurance training.) - Care Plan Anticipated Length of Stay (days): 3 Anticipated DC Destination: Home, Self Care, Home Health Service I have led this team conference and agree with the plan. Interventions/Goals: Therapy is held at the present time secondary to his hypotension. Blood pressure initially seemed to respond IV fluids but is now low again. He is not symptomatic at present. Patient has nearly met goals and is doing well. One blood pressure more stable we will resume therapy.
[2017-12-31] MEDS: TAMSULOSIN 0.4 MG CAPSULE PO SCH (20:47)
[2017-12-31] MEDS: OMEPRAZOLE 20 MG CAPSULE PO SCH (20:49)
[2018-01-01] MEDS: ACETAMINOPHEN 325 MG TABLET PO PRN (06:16)
[2018-01-01] MEDS: CARVEDILOL 3.125 MG TABLET PO SCH ×2 (08:44→17:29)
[2018-01-01] MEDS: SPIRONOLACTONE 25 MG TABLET PO SCH (08:44)
[2018-01-01] MEDS: AMIODARONE 200 MG TABLET PO SCH (08:44)
[2018-01-01] MEDS: ROSUVASTATIN 5 MG TABLET PO SCH (08:44)
[2018-01-01] MEDS: APIXABAN 5 MG TABLET PO SCH ×2 (08:45→21:04)
--- NOTE | 2018-01-01 10:26 | IRU Progress Note ---
- Subjective/Serverity of Illness Date: 01/01/18 Obdulio states that he did not feel well all day yesterday and he was achy all over. He has not been running a fever. He reports that in the past when he is been on atorvastatin daily he has had joint aches. This morning he awakened about 3:00 in the morning and was nauseated. He denies actual abdominal pain although he is a bit tender upon palpation of the abdomen. He was spitting up some phlegm this morning in conjunction with his nausea. He was able to partially eat his breakfast. He continues to have some hypotension. Blood pressure supine is 120 and standing it is 98 systolic. He actually denies lightheadedness however. He denies any chest pain. He denies shortness of breath. The patient remains in sinus mechanism at least clinically. Reports he had a bowel movement in the last 24 hours and it was not noted to be bloody nor black. Exam Vital Signs: Temperature 99.2 F 01/01/18 08:00 Pulse Rate 73 01/01/18 09:47 Respiratory Rate 18 01/01/18 08:00 Blood Pressure 98/51 01/01/18 09:47 Pulse Oximetry 92 01/01/18 09:45 Height/Weight/BMI: Height 1.75 m Weight 93.1 kg Body Mass Index 31.1 - Constitutional Present: mild distress (nauseated), well nourished, well developed, cooperative Comments: He is awake alert and oriented and denies lightheadedness. - Routine HEENT Exam Head: Present: normocephalic Eye: Present: EOMI ENT: Present: mucous membranes moist, oropharynx clear - Routine Neck Exam Present: supple - Routine Respiratory Exam Present: CTA bilaterally. Absent: wheezes - Routine Cardiovascular Exam Present: RRR, S1, S2. Absent: murmur - Routine Abdominal Exam Present: soft, normoactive bowel sounds, tenderness (continues to be mildly tender in the mid epigastrium and just a bit lower than that. Wound is unremarkable although firm. G-tube site is not inflamed.), non distended - Routine Extremities Exam Present: no edema. Absent: cyanosis, clubbing - Routine Skin Exam Present: dry, warm - Routine Neurological Exam Present: alert, oriented X3, CN II-XII intact - Routine Psychiatric Exam Present: normal affect, good insight, good judgment Results IRU - Labs Labs: Reviewed his labs noting stable hemoglobin. IRU A/P (1) Atrial flutter with rapid ventricular response Current visit: No Status: Acute Remains in regular rhythm at present. (2) Acute systolic (congestive) heart failure Current visit: No Status: Acute Weight is down a couple of kilograms. He may be a bit overly diuresed. Management per hospitalist service. (3) Pleural effusion on right Problem details: Post op Current visit: No Status: Acute (4) Esophageal cancer Qualifiers: Malignant neoplasm of esophagus location: unspecified location Qualified Code(s): C15.9 - Malignant neoplasm of esophagus, unspecified Problem details: S/P resection of distal esophagus/prox stomach Current visit : No Status: Chronic (5) GERD (gastroesophageal reflux disease) Qualifiers: Esophagitis presence: esophagitis presence not specified Qualified Code(s) : K21.9 - Gastro-esophageal reflux disease without esophagitis Current visit: Yes Status: Acute He complains of nausea this morning. Had some emesis although was more " spitting up" of some phlegm. Appetite is reduced. We started him on omeprazole yesterday. (6) Hypotension Qualifiers: Hypotension type: unspecified hypotension type Qualified Code(s): I95.9 - Hypotension, unspecified Current visit: Yes Status: Acute Continues to have orthostatic hypotension this morning with standing blood pressure 98 systolic. (7) Anemia Qualifiers: Anemia type: unspecified type Qualified Code(s): D64.9 - Anemia, unspecified Current visit: Yes Status: Acute Hemoglobin stable to improved this morning. DVT Prophylaxis: SCD's, Lovenox Resuscitation Status: Full Code - Course Hospital Course: John Mak MD: 12/28/17 10:38 Patient is tolerating therapy well. Denies dyspnea. Appetite is good. Telemetry in place without evidence of atrial fibrillation or flutter (occ PAC' s only) 12/28/17 10:43 12/31/17 10:29 Hypotensive spell this morning. Resolved with lying supine. Hemoglobin dropped to 8.8. Reflux symptoms reported last night and recently. Will add omeprazole. 01/01/18 10:27 Still with some orthostatic hypotension. Hemoglobin improved at 9.0 Complains of nausea. - Interventions to Obtain Goals PT Treatment Plan: Balance/Proprioception, Functional Activities, Gait Training , Patient/Family Education, Therapeutic Exercise OT Treatment Plan: ADL (Basic Care), Balance Training, Pt./Family Education, Ther. Exercise for ADL Goals Progress/Modifications: Patient continues to be complex with regard to his heart failure, hypotension and now nausea and reflux. He is a little tender in the abdomen although no rebound. Hemoglobin is actually improved so doubt GI bleed. He was started on omeprazole yesterday. Because of his continued hypotension and nausea, we will again hold therapy for the time being. Hopefully he can resume therapy later on today. I discussed all this with the hospitalist service as well.
[2018-01-01] MEDS ORDERED: SCOPOLAMINE 1mg/3 days PATCH (Eq. 1.5 Patch) TD SCH (14:45)
--- NOTE | 2018-01-01 15:12 | Progress Note ---
Progress Note: See progress note earlier today. We have reassessed his blood pressures on several occasions. They are improved with standing pressure over 100. However he is expressing considerable nausea which is worse with sitting or standing. We tried to resume therapy but that was not possible due to his severe nausea. He tried to eat some lunch but "spit up" a bit thereafter. I have started a scopolamine patch and ordered Zofran. Also discussed with Anita with the hospitalist service who will pursue further with possible KUB. Abdomen is soft although a bit tender in the midportion. Hemoglobin has been stable.
[2018-01-01] MEDS: ONDANSETRON 4 MG/2 ML INJECTION IVP PRN (15:26)
[2018-01-01] MEDS ORDERED: NS 1,000 ML IV SCH (15:45)
--- NOTE | 2018-01-01 16:14 | XRay Report ---
Indication: n/v, s/p esophagectomy PROCEDURE: XR abdomen 1V: Encounter: Initial Comparison: CT abdomen dated May 21, 2017 Findings: Surgical clips in the upper abdomen consistent with the patient's history of esophagectomy. Elevated paralyzed right hemidiaphragm. The bowel gas pattern is nonobstructive and nonspecific. Moderate stool in the colon. No abnormally dilated small bowel loops appreciated. Impression: Nonobstructive nonspecific bowel gas pattern. .
[2018-01-01] MEDS: OMEPRAZOLE 20 MG CAPSULE PO SCH (21:04)
[2018-01-01] MEDS: SENNOSIDES 8.6 MG TABLET PO SCH (21:04)
[2018-01-01] MEDS: TAMSULOSIN 0.4 MG CAPSULE PO SCH (21:05)
[2018-01-02] MEDS: ACETAMINOPHEN 325 MG TABLET PO PRN ×3 (01:30→16:28)
[2018-01-02] MEDS: ONDANSETRON 4 MG/2 ML INJECTION IVP PRN ×2 (01:44→10:34)
[2018-01-02] MEDS: AMIODARONE 200 MG TABLET PO SCH (08:29)
[2018-01-02] MEDS: APIXABAN 5 MG TABLET PO SCH ×2 (08:29→21:18)
[2018-01-02] MEDS: SPIRONOLACTONE 25 MG TABLET PO SCH (08:29)
[2018-01-02] MEDS: CARVEDILOL 3.125 MG TABLET PO SCH ×2 (08:29→18:49)
[2018-01-02] MEDS: POLYETHYL GLYCOL 3350 17gm PACKET PO SCH (08:30)
[2018-01-02] MEDS: SALINE FLUSH 10ml SYRINGE IV PRN ×3 (08:30→12:16)
--- NOTE | 2018-01-02 08:32 | Progress Note ---
- Date 01/02/18 Subjective: Obdulio is seen and examined today. He had fever overnight up to 101. This morning he feels "Blah" however is without specific complaints. Denies feeling short of breath or having a cough. Denies chest pain or abdominal pain. No difficulty with urination or bowel movements. Objective Vital signs: Temperature 99.1 F 01/02/18 08:00 Pulse Rate 82 01/02/18 08:00 Respiratory Rate 22 01/02/18 08:00 Blood Pressure 118/56 01/02/18 08:00 Pulse Oximetry 92 01/02/18 08:00 Height/Weight/BMI: Height 1.75 m Weight 92.9 kg Body Mass Index 31.1 - Constitutional Present: no acute distress, well nourished, well developed - Routine HEENT Exam Eye: Present: EOMI ENT: Present: mucous membranes moist, dentition normal - Routine Respiratory Exam Present: CTA bilaterally. Absent: wheezes - Routine Cardiovascular Exam Present: RRR, S1, S2. Absent: murmur - Routine Abdominal Exam Present: soft, normoactive bowel sounds, non distended. Absent: tenderness - Routine Extremities Exam Present: full ROM, normal capillary refill - Routine Back/Spine/Pelvis Exam Back/Spine: Present: full ROM - Routine Skin Exam Present: intact, dry, warm - Routine Neurological Exam Present: alert, oriented X3, CN II-XII intact - Routine Lymphatic Exam Lymphatic: Absent: adenopathy - Routine Psychiatric Exam Present: normal affect, cooperative Results - Labs CBC & Chem 7: 01/02/18 04:33 01/02/18 04:33 Microbiology Results: Microbiology 01/02/18 02:32 Port/Picc Blood Culture - Preliminary Culture Initiated - Results Pending Assessment and Plan Assessment and Plan: Assessment Hypotension-12/31/17 Atrial flutter with RVR - s/p DC cardioversion maintaining normal sinus rhythm ( 12/24/17) Chronic anticoagulation Esophageal cancer-S/P resection of distal esophagus/proximal stomach Systolic heart failure-ejection fraction 35% Normocytic anemia Lumbar Spinal stenosis Benign prostatic hyperplasia Hypercholesterolemia Plan Fever overnight up to 101.3. CBC revels mild leukocytosis- 11.2 UA was negative this morning Blood cultures were obtained- one from portacath line Will obtain chest X-ray today BP stable at 118/56 this morning. Will continue to monitor carefully - Physician Narrative Narrative: Date: 01/02/18 Time: 0828 Hospital Course Summary Disclaimer: The visit summary below is not to be considered part of the above Progress Note. Hospital Course: 12/27/17-hospitalist consult Agree with admission to IRU for further strengthening. Pain control and rehabilitation therapies per Dr. Mak. His hemoglobin was 9.5 on admission. Prior to admission for his esophageal surgery hemoglobin was 12.1. He ranged from 9.3-10.2 during his recent hospitalization. Continue to monitor periodically, especially given the initiation of anticoagulation in light of his recent atrial flutter. Medications, labs, vital signs are reviewed. Care will return to Dr. Richard upon dismissal. Hospitalist team will continue to follow patient along with you during his stay. 12/31/17 Reviewed telemetry-normal sinus rhythm. Start normal saline 250 per hour 2 hours for hypotension. Hold Lasix and Entresto. Check BMP in a.m. Mild hemoglobin drop 9.5-->8.8. Repeat CBC tomorrow. Chest check daily weights. Monitor I's and O's given his systolic heart failure. PPI started for nocturnal reflux. Case discussed with Dr. Lynn and Dr. Mak. 01/02/18 Fever overnight up to 101.3. CBC revels mild leukocytosis- 11.2 UA was negative this morning Blood cultures were obtained- one from portacath line Will obtain chest X-ray today BP stable at 118/56 this morning. Will continue to monitor carefully
[2018-01-02] MEDS ORDERED: FALL RISK - PHARMACY CONSULT XX ONE (08:48)
[2018-01-02] MEDS ORDERED: NS 1,000 ML IV ONE (12:03)
--- NOTE | 2018-01-02 13:24 | XRay Report ---
INDICATION: Fever PROCEDURE: CHEST 2-VIEWS UPRIGHT (PA & LAT) Encounter: Initial COMPARISON: December 24, 2017 FINDINGS: Improving aeration of the right lung with residual areas of basilar opacity. Left lung is clear. No pneumothorax or pleural effusion. Heart size and mediastinal contours are stable. Pulmonary vascularity appears normal. Impression: Improving right lower lobe pneumonia. Residual areas of opacity could relate to airspace disease or scarring from prior surgery. .
[2018-01-02] MEDS ORDERED: CEFTRIAXONE 1 G in NS 50 ML IV ONE (14:03)
[2018-01-02] MEDS ORDERED: AMOX/CLAV 875 MG/125 MG TABLET PO SCH (21:00)
[2018-01-02] MEDS: TAMSULOSIN 0.4 MG CAPSULE PO SCH (21:18)
[2018-01-02] MEDS: OMEPRAZOLE 20 MG CAPSULE PO SCH (21:18)
[2018-01-02] MEDS: SENNOSIDES 8.6 MG TABLET PO SCH (21:18)
[2018-01-03] MEDS ORDERED: BISACODYL 10 MG SUPPOSITORY RECTALLY PRN (08:15)
[2018-01-03] MEDS: AMIODARONE 200 MG TABLET PO SCH (08:36)
[2018-01-03] MEDS: AMOX/CLAV 875 MG/125 MG TABLET PO SCH ×2 (08:36→20:21)
[2018-01-03] MEDS: CARVEDILOL 3.125 MG TABLET PO SCH ×2 (08:36→18:18)
[2018-01-03] MEDS: APIXABAN 5 MG TABLET PO SCH ×2 (08:38→20:22)
[2018-01-03] MEDS: ROSUVASTATIN 5 MG TABLET PO SCH (08:38)
[2018-01-03] MEDS: SPIRONOLACTONE 25 MG TABLET PO SCH (08:38)
[2018-01-03] MEDS: POLYETHYL GLYCOL 3350 17gm PACKET PO SCH (08:39)
[2018-01-03] MEDS: SENNA + DOCUSATE TABLET PO SCH ×2 (08:40→21:58)
[2018-01-03] MEDS: SALINE FLUSH 10ml SYRINGE IV PRN ×2 (08:40→18:18)
--- NOTE | 2018-01-03 12:48 | Progress Note ---
- Date 01/03/18 Subjective: Obdulio is seen today in follow up following nursing staff reporting he seems more confused this am. He is laying in bed during examination. He denies having pain or feeling short of breath. He states he is having some coughing. He is alert and will answer most questions appropriately, however is confused about time of day. Objective Vital signs: Temperature 98.2 F 01/03/18 06:41 Pulse Rate 97 01/03/18 10:33 Respiratory Rate 24 01/03/18 06:41 Blood Pressure 100/55 01/03/18 10:33 Pulse Oximetry 96 01/03/18 10:28 Height/Weight/BMI: Height 1.75 m Weight 92.9 kg Body Mass Index 31.1 - Constitutional Present: no acute distress, well nourished, well developed - Routine HEENT Exam Eye: Present: EOMI ENT: Present: mucous membranes moist, dentition normal - Routine Respiratory Exam Present: CTA bilaterally. Absent: wheezes - Routine Cardiovascular Exam Present: RRR, S1, S2. Absent: murmur - Routine Abdominal Exam Present: soft, normoactive bowel sounds, non distended. Absent: tenderness - Routine Extremities Exam Present: normal capillary refill - Routine Skin Exam Present: intact, dry, warm - Routine Neurological Exam Present: alert, CN II-XII intact, moving all extremities - Routine Lymphatic Exam Lymphatic: Absent: adenopathy - Routine Psychiatric Exam Present: normal affect Results - Labs CBC & Chem 7: 01/03/18 04:14 01/03/18 04:14 Microbiology Results: Microbiology 01/02/18 02:32 Port/Picc Blood Culture - Preliminary No Growth After 1 Day Assessment and Plan Assessment and Plan: Assessment Hypotension-12/31/17 Atrial flutter with RVR - s/p DC cardioversion maintaining normal sinus rhythm ( 12/24/17) Chronic anticoagulation Esophageal cancer-S/P resection of distal esophagus/proximal stomach Systolic heart failure-ejection fraction 35% Normocytic anemia Lumbar Spinal stenosis Benign prostatic hyperplasia Hypercholesterolemia Plan Continue with Augmentin for treatment of Pneumonia WBC count trending down slightly this morning. Blood culture revels no growth at 24 hours Continue to encourage PT/OT - Physician Narrative Narrative: Date: 01/03/18 Time: 1244 Hospital Course Summary Disclaimer: The visit summary below is not to be considered part of the above Progress Note. Hospital Course: 12/27/17-hospitalist consult Agree with admission to IRU for further strengthening. Pain control and rehabilitation therapies per Dr. Mak. His hemoglobin was 9.5 on admission. Prior to admission for his esophageal surgery hemoglobin was 12.1. He ranged from 9.3-10.2 during his recent hospitalization. Continue to monitor periodically, especially given the initiation of anticoagulation in light of his recent atrial flutter. Medications, labs, vital signs are reviewed. Care will return to Dr. Richard upon dismissal. Hospitalist team will continue to follow patient along with you during his stay. 12/31/17 Reviewed telemetry-normal sinus rhythm. Start normal saline 250 per hour 2 hours for hypotension. Hold Lasix and Entresto. Check BMP in a.m. Mild hemoglobin drop 9.5-->8.8. Repeat CBC tomorrow. Chest check daily weights. Monitor I's and O's given his systolic heart failure. PPI started for nocturnal reflux. Case discussed with Dr. Lynn and Dr. Mak. 01/02/18 Fever overnight up to 101.3. CBC revels mild leukocytosis- 11.2 UA was negative this morning Blood cultures were obtained- one from portacath line Will obtain chest X-ray today BP stable at 118/56 this morning. Will continue to monitor carefully
--- NOTE | 2018-01-03 14:22 | IRU Progress Note ---
- Subjective/Serverity of Illness Date: 01/03/18 Obdulio was interviewed and examined in his room with the director of occupational therapy present. He developed quite a bit of nausea and was "spitting up" over the last couple of days. He was evaluated by the hospitalist service as well. He did develop a fever of 101. Chest x-ray was obtained indicating possible right lower lobe infiltrate. He was started on Augmentin. He is currently tolerating that well without evidence of GI side effects. However, since this morning he is been quite confused. He is awake and alert but is not oriented. 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 He does not know who I am. He says the year is "37." He denies any pains anywhere. He denies any nausea or vomiting. He denies shortness of breath. He does have an occasional cough. I discussed the case with the patient's . She wonders if he may have had a stroke. I told her at this point we do not see evidence of that. Blood culture was negative. White count normal today. Hemoglobin stable at 8.7 g percent. Urinalysis has been clear. Chest x-ray as noted above. Exam Vital Signs: Temperature 98.2 F 01/03/18 06:41 Pulse Rate 97 01/03/18 10:33 Respiratory Rate 24 01/03/18 06:41 Blood Pressure 100/55 01/03/18 10:33 Pulse Oximetry 96 01/03/18 10:28 Height/Weight/BMI: Height 1.75 m Weight 92.9 kg Body Mass Index 31.1 - Constitutional Present: no acute distress, well nourished, well developed, cooperative Comments: Disorientated although cooperative. - Routine HEENT Exam Head: Present: normocephalic Eye: Present: EOMI ENT: Present: mucous membranes moist, oropharynx clear - Routine Neck Exam Present: supple - Routine Respiratory Exam Present: decreased breath sounds. Absent: respiratory distress, wheezes, crackles Comments: At the present time I do not hear any crackles or rales in his lungs. Does have decreased breath sounds. He is in no acute distress. - Routine Cardiovascular Exam Present: RRR, S1, S2. Absent: murmur, S3, S4 - Routine Abdominal Exam Present: soft, normoactive bowel sounds, non distended. Absent: tenderness - Routine Extremities Exam Present: edema - Routine Skin Exam Present: dry, warm Comments: No rash and no petechiae are identified. - Routine Neurological Exam Present: alert, CN II-XII intact. Absent: oriented X3 (patient does not know where he is this morning. He does not know my name. He does not know the year.) Further information indicates that he did have some confusion while on acute care. However he has been well oriented while on rehabilitation. We will continue to monitor. This could be related to his underlying pulmonary infection. - Routine Psychiatric Exam Present: normal affect, cooperative, anxious. Absent: good insight, good judgment Results IRU - Labs Labs: I reviewed all lab, blood culture results, urinalysis, and chest radiograph. IRU A/P (1) Atrial flutter with rapid ventricular response Current visit: No Status: Acute Has probably been in sinus mechanism since the conversion. Denies any palpitations. (2) Acute systolic (congestive) heart failure Current visit: No Status: Acute Seems to be compensated with regard to his reduced ejection fraction. Does have some edema but this is stable. (3) Pleural effusion on right Problem details: Post op Current visit: No Status: Acute Because of his fever 101 and his cough, he has been started on antibiotic by the hospitalist service. Whether the effusion on the right represents an infection is not clear but certainly could explain his confusion. (4) Esophageal cancer Qualifiers: Malignant neoplasm of esophagus location: unspecified location Qualified Code(s): C15.9 - Malignant neoplasm of esophagus, unspecified Problem details: S/P resection of distal esophagus/prox stomach Current visit : No Status: Chronic (5) GERD (gastroesophageal reflux disease) Qualifiers: Esophagitis presence: esophagitis presence not specified Qualified Code(s) : K21.9 - Gastro-esophageal reflux disease without esophagitis Current visit: Yes Status: Acute (6) Hypotension Qualifiers: Hypotension type: unspecified hypotension type Qualified Code(s): I95.9 - Hypotension, unspecified Current visit: Yes Status: Resolved At the present time his blood pressures appear to be stable without hypotension. (7) Anemia Qualifiers: Anemia type: unspecified type Qualified Code(s): D64.9 - Anemia, unspecified Current visit: Yes Status: Acute (8) Acute delirium Current visit: Yes Status: Acute Since this morning the patient has been confused with symptoms consistent with an acute delirium. Likely this is related to an underlying infection in view of the fever. He has been started on Augmentin in this regard. DVT Prophylaxis: SCD's, Lovenox Resuscitation Status: Full Code - Course Hospital Course: John Mak MD: 12/28/17 10:38 Patient is tolerating therapy well. Denies dyspnea. Appetite is good. Telemetry in place without evidence of atrial fibrillation or flutter ([facility] only) 12/28/17 10:43 12/31/17 10:29 Hypotensive spell this morning. Resolved with lying supine. Hemoglobin dropped to 8.8. Reflux symptoms reported last night and recently. Will add omeprazole. 01/01/18 10:27 Still with some orthostatic hypotension. Hemoglobin improved at 9.0 Complains of nausea. 01/03/18 14:25 Acute confusion noted. Blood pressure improved. Hemoglobin stable at 8.7 g percent. Chest radiograph with effusion versus infiltrate right lower lobe. Started on Augmentin by hospitalist service. - Interventions to Obtain Goals PT Treatment Plan: Balance/Proprioception, Functional Activities, Gait Training , Patient/Family Education, Therapeutic Exercise OT Treatment Plan: ADL (Basic Care), Balance Training, Pt./Family Education, Ther. Exercise for ADL Goals Progress/Modifications: Patient is cooperative with therapy although he does have some confusion. Etiology of the confusion is unclear. Neurologically he seems to be intact without evidence of the lateral weakness or evidence of TIA/CVA. His speech is fluent although he is confused. Likely his delirium is related to an underlying acute infection. Evidence for this would include his fever 101 and cough as well as abnormal chest radiograph. He has been started on Augmentin. We will monitor him carefully for evidence of neurologic decline. He is able to cooperate with therapy and we are pursuing that at the present time. Blood culture is negative. His previously noted hypotension has resolved.
[2018-01-03] MEDS: SENNOSIDES 8.6 MG TABLET PO SCH (20:21)
[2018-01-03] MEDS: OMEPRAZOLE 20 MG CAPSULE PO SCH (20:22)
[2018-01-03] MEDS: TAMSULOSIN 0.4 MG CAPSULE PO SCH (20:22)
[2018-01-04] MEDS: AMOX/CLAV 875 MG/125 MG TABLET PO SCH ×2 (08:46→20:50)
[2018-01-04] MEDS: AMIODARONE 200 MG TABLET PO SCH (08:46)
[2018-01-04] MEDS: SPIRONOLACTONE 25 MG TABLET PO SCH (08:47)
[2018-01-04] MEDS: APIXABAN 5 MG TABLET PO SCH ×2 (08:47→20:50)
[2018-01-04] MEDS: CARVEDILOL 3.125 MG TABLET PO SCH ×2 (08:47→18:21)
[2018-01-04] MEDS: SENNA + DOCUSATE TABLET PO SCH ×2 (08:49→21:00)
[2018-01-04] MEDS: POLYETHYL GLYCOL 3350 17gm PACKET PO SCH (08:50)
[2018-01-04] MEDS: BISACODYL 10 MG SUPPOSITORY RECTALLY SCH ×2 (10:04→16:53)
--- NOTE | 2018-01-04 11:17 | IRU Progress Note ---
- Subjective/Serverity of Illness Date: 01/04/18 Mr. López has many significant turnaround with regard to his responsiveness as well as medically. He is awake alert and reasonably well oriented today. He did have some trouble getting some words out but he knows it is 2017 and that it is December. He knows he is at [facility] but says he is in the cancer unit instead of the rehabilitation unit. He reports he had a bad cough yesterday but it is much improved today. He is not producing any sputum. He is being treated for pneumonia. He is on Augmentin. Evidence for pneumonia was the abnormal chest x-ray in the right lower lobe, fever of 101 on January 02 as well as a bump in his white count to just over 11,000. He has remained afebrile since that time and his white count is now normal. He is able to eat and drink adequately. He is more oriented. He is participating with therapy. With regard to his cardiac issues, he remains in sinus mechanism. He denies dyspnea. His lungs are clear except for perhaps some crackles in the right base. His previously noted severe nausea several days ago has completely abated. Denies nausea or vomiting. Denies chest pain. Denies abdominal pain. Exam Vital Signs: Temperature 98.2 F 01/04/18 06:04 Pulse Rate 104 H 01/04/18 06:06 Respiratory Rate 24 01/04/18 06:04 Blood Pressure 114/55 01/04/18 06:06 Pulse Oximetry 92 01/04/18 06:06 Height/Weight/BMI: Height 1.75 m Weight 93.5 kg Body Mass Index 31.1 - Constitutional Present: no acute distress, well nourished, well developed, cooperative Comments: He is much more awake and alert. - Routine HEENT Exam Eye: Present: EOMI. Absent: scleral injection ENT: Present: mucous membranes moist, oropharynx clear - Routine Neck Exam Present: supple - Routine Respiratory Exam Present: decreased breath sounds, crackles (right base). Absent: wheezes - Routine Cardiovascular Exam Present: RRR (reviewed telemetry indicating sinus mechanism.), S1, S2. Absent: murmur - Routine Abdominal Exam Present: soft, normoactive bowel sounds, non distended. Absent: tenderness Comments: G-tube site unremarkable. - Routine Extremities Exam Present: edema (has trace to 1+ edema bilaterally.), normal capillary refill - Routine Skin Exam Present: dry, warm - Routine Neurological Exam Present: alert, oriented X3 (please see above discussion. Today he knows who I am wears yesterday he did not. He knows he is at [facility] but thinks he is in the oncology unit. He knows that this is December 2017. Service significantly improved regarding orientation.), CN II-XII intact. Absent: motor deficit - Routine Psychiatric Exam Present: normal affect, cooperative Results IRU - Labs Labs: Blood culture negative. Has remained afebrile. White count now normal. IRU A/P (1) Atrial flutter with rapid ventricular response Current visit: No Status: Acute Since cardioversion he has remained in sinus mechanism. Denies palpitations. (2) Acute systolic (congestive) heart failure Current visit: No Status: Acute Does have some peripheral edema. Denies dyspnea. Seems to be reasonably well compensated for his ejection fraction of 35% (3) Pleural effusion on right Problem details: Post op Current visit: No Status: Acute Abnormal chest x-ray reviewed previously. He is being treated for pneumonia. Diagnosis was based on cough, confusion, fever and leukocytosis. All parameters are improved. (4) Esophageal cancer Qualifiers: Malignant neoplasm of esophagus location: unspecified location Qualified Code(s): C15.9 - Malignant neoplasm of esophagus, unspecified Problem details: S/P resection of distal esophagus/prox stomach Current visit : No Status: Chronic (5) GERD (gastroesophageal reflux disease) Qualifiers: Esophagitis presence: esophagitis presence not specified Qualified Code(s) : K21.9 - Gastro-esophageal reflux disease without esophagitis Current visit: Yes Status: Acute (6) Hypotension Qualifiers: Hypotension type: unspecified hypotension type Qualified Code(s): I95.9 - Hypotension, unspecified Current visit: Yes Status: Resolved (7) Anemia Qualifiers: Anemia type: unspecified type Qualified Code(s): D64.9 - Anemia, unspecified Current visit: Yes Status: Acute (8) Acute delirium Current visit: Yes Status: Acute Confusion is about 90% improved. Continue to monitor. Likely this is related to his underlying pulmonary infection. DVT Prophylaxis: SCD's, Lovenox Resuscitation Status: Full Code - Course Hospital Course: John Mak MD: 12/28/17 10:38 Patient is tolerating therapy well. Denies dyspnea. Appetite is good. Telemetry in place without evidence of atrial fibrillation or flutter (occ PAC' s only) 12/28/17 10:43 12/31/17 10:29 Hypotensive spell this morning. Resolved with lying supine. Hemoglobin dropped to 8.8. Reflux symptoms reported last night and recently. Will add omeprazole. 01/01/18 10:27 Still with some orthostatic hypotension. Hemoglobin improved at 9.0 Complains of nausea. 01/03/18 14:25 Acute confusion noted. Blood pressure improved. Hemoglobin stable at 8.7 g percent. Chest radiograph with effusion versus infiltrate right lower lobe. Started on Augmentin by hospitalist service. 01/04/18 11:20 Improved dramatically with regard to delirium. Few crackles right base. Tolerating Augmentin well. Participating with therapy. - Interventions to Obtain Goals PT Treatment Plan: Balance/Proprioception, Functional Activities, Gait Training , Patient/Family Education, Therapeutic Exercise OT Treatment Plan: ADL (Basic Care), Balance Training, Pt./Family Education, Ther. Exercise for ADL Goals Progress/Modifications: His acute confusion is much improved. Reports severe cough yesterday which has significantly abated today. He has had no recurrence of his severe nausea. It is intriguing to surmise that perhaps with his "spitting up," he aspirated a bit , resulting in pulmonary of infection. Nevertheless he is improving and he has remained afebrile since the seventh. He is participating with therapy. Currently his cardiac status appears to be reasonably stable and he remains in sinus mechanism. His heart failure appears to be compensated. Continue therapy at present. I have reassessed his cardiac status, pulmonary status, cognition as well as his tolerance of therapy.
[2018-01-04] MEDS ORDERED: SCOPOLAMINE PATCH REMOVAL TD SCH (14:45)
[2018-01-04] MEDS: OMEPRAZOLE 20 MG CAPSULE PO SCH (20:49)
[2018-01-04] MEDS: SALINE FLUSH 10ml SYRINGE IV PRN (20:49)
[2018-01-04] MEDS: SENNOSIDES 8.6 MG TABLET PO SCH (20:49)
[2018-01-04] MEDS: TAMSULOSIN 0.4 MG CAPSULE PO SCH (20:51)
[2018-01-05] MEDS: BISACODYL 10 MG SUPPOSITORY RECTALLY SCH ×3 (00:54→10:11)
[2018-01-05] MEDS: CARVEDILOL 3.125 MG TABLET PO SCH ×2 (08:49→17:54)
[2018-01-05] MEDS: AMIODARONE 200 MG TABLET PO SCH (08:49)
[2018-01-05] MEDS: SPIRONOLACTONE 25 MG TABLET PO SCH (08:50)
[2018-01-05] MEDS: SENNA + DOCUSATE TABLET PO SCH ×2 (08:50→22:28)
[2018-01-05] MEDS: ROSUVASTATIN 5 MG TABLET PO SCH (08:50)
[2018-01-05] MEDS: APIXABAN 5 MG TABLET PO SCH ×2 (08:50→20:07)
[2018-01-05] MEDS: AMOX/CLAV 875 MG/125 MG TABLET PO SCH ×2 (08:50→20:07)
[2018-01-05] MEDS: POLYETHYL GLYCOL 3350 17gm PACKET PO SCH (08:54)
--- NOTE | 2018-01-05 15:21 | Progress Note ---
- Date 01/05/18 Subjective: Obdulio is seen today in follow up. He is sleepy quietly. I did not wake him up during exam. Chart is reviewed for collateral information. Objective Vital signs: Temperature 97.8 F 01/05/18 07:15 Pulse Rate 85 01/05/18 08:00 Respiratory Rate 18 01/05/18 07:15 Blood Pressure 124/56 01/05/18 07:20 Pulse Oximetry 94 01/05/18 07:20 Height/Weight/BMI: Height 1.75 m Weight 93.5 kg Body Mass Index 31.1 - Constitutional Present: no acute distress, average body habitus, cooperative - Routine HEENT Exam Head: Present: normocephalic, atraumatic - Routine Respiratory Exam Present: CTA bilaterally. Absent: dyspnea, rhonchi, wheezes, crackles - Routine Cardiovascular Exam Present: RRR, S1, S2 - Routine Abdominal Exam Present: soft, non distended, non tender - Routine Extremities Exam Present: no edema, non tender - Routine Musculoskeletal Exam Musculoskeletal: Present: no clubbing or cyanosis - Routine Skin Exam Present: intact, dry, warm - Routine Psychiatric Exam Present: unable to assess Results - Labs CBC & Chem 7: 01/03/18 04:14 01/03/18 04:14 Microbiology Results: Microbiology 01/02/18 02:32 Port/Picc Blood Culture - Preliminary No Growth After 3 Days Assessment and Plan (1) Anemia Current visit: Yes Status: Acute Assessment and Plan: Assessment Hypotension-12/31/17 Atrial flutter with RVR - s/p DC cardioversion maintaining normal sinus rhythm ( 12/24/17) Chronic anticoagulation Esophageal cancer-S/P resection of distal esophagus/proximal stomach Systolic heart failure-ejection fraction 35% Normocytic anemia Lumbar Spinal stenosis Benign prostatic hyperplasia Hypercholesterolemia Early pneumonia Plan 01/05/18 Augmentin day #3 to cover possible early pneumonia (Risk for aspiration) Repeat CXR on Sunday. Pt is afebrile. Orthostasis is quite a bit better, but some occasional low BP. Continue to hold Entresto, Lasix. Will hold Aldactone as well as potassium level is trending up. Repeat labs Sunday AM. Continue PT/OT for strengthening. Pt did have very large BM today. DC'd scheduled Dulcolax for now. Continue the remainder of laxatives. DVT Prophylaxis: SCD's Resuscitation Status: Full Code - Physician Narrative Narrative: Date: 01/05/18 Time: 1518 Hospital Course Summary Disclaimer: The visit summary below is not to be considered part of the above Progress Note. Hospital Course: 12/27/17-hospitalist consult Agree with admission to IRU for further strengthening. Pain control and rehabilitation therapies per Dr. Mak. His hemoglobin was 9.5 on admission. Prior to admission for his esophageal surgery hemoglobin was 12.1. He ranged from 9.3-10.2 during his recent hospitalization. Continue to monitor periodically, especially given the initiation of anticoagulation in light of his recent atrial flutter. Medications, labs, vital signs are reviewed. Care will return to Dr. Richard upon dismissal. Hospitalist team will continue to follow patient along with you during his stay. 12/31/17 Reviewed telemetry-normal sinus rhythm. Start normal saline 250 per hour 2 hours for hypotension. Hold Lasix and Entresto. Check BMP in a.m. Mild hemoglobin drop 9.5-->8.8. Repeat CBC tomorrow. Chest check daily weights. Monitor I's and O's given his systolic heart failure. PPI started for nocturnal reflux. Case discussed with Dr. Lynn and Dr. Mak. 01/02/18 Fever overnight up to 101.3. CBC revels mild leukocytosis- 11.2 UA was negative this morning Blood cultures were obtained- one from portacath line Will obtain chest X-ray today BP stable at 118/56 this morning. Will continue to monitor carefully Plan 01/05/18 Augmentin day #3 to cover possible early pneumonia (Risk for aspiration) Repeat CXR on Sunday. Pt is afebrile. Orthostasis is quite a bit better, but some occasional low BP. Continue to hold Entresto, Lasix. Will hold Aldactone as well as potassium level is trending up. Repeat labs Sunday AM. Continue PT/OT for strengthening. Pt did have very large BM today. DC'd scheduled Dulcolax for now. Continue the remainder of laxatives.
[2018-01-05] MEDS: SALINE FLUSH 10ml SYRINGE IV PRN ×2 (17:54→20:10)
[2018-01-05] MEDS: OMEPRAZOLE 20 MG CAPSULE PO SCH (20:08)
[2018-01-05] MEDS: TAMSULOSIN 0.4 MG CAPSULE PO SCH (20:09)
[2018-01-05] MEDS: SENNOSIDES 8.6 MG TABLET PO SCH (22:32)
[2018-01-06] MEDS: POLYETHYL GLYCOL 3350 17gm PACKET PO SCH (08:21)
[2018-01-06] MEDS: SENNA + DOCUSATE TABLET PO SCH ×2 (08:22→20:08)
[2018-01-06] MEDS: APIXABAN 5 MG TABLET PO SCH ×2 (09:18→20:08)
[2018-01-06] MEDS: AMOX/CLAV 875 MG/125 MG TABLET PO SCH ×2 (09:18→20:08)
[2018-01-06] MEDS: CARVEDILOL 3.125 MG TABLET PO SCH ×2 (09:19→17:15)
[2018-01-06] MEDS: AMIODARONE 200 MG TABLET PO SCH (09:19)
[2018-01-06] MEDS: SALINE FLUSH 10ml SYRINGE IV PRN ×2 (17:15→20:08)
[2018-01-06] MEDS: OMEPRAZOLE 20 MG CAPSULE PO SCH (20:08)
[2018-01-06] MEDS: TAMSULOSIN 0.4 MG CAPSULE PO SCH (20:08)
[2018-01-06] MEDS: SENNOSIDES 8.6 MG TABLET PO SCH (20:08)
[2018-01-07] MEDS: ROSUVASTATIN 5 MG TABLET PO SCH (08:08)
[2018-01-07] MEDS: APIXABAN 5 MG TABLET PO SCH ×2 (08:09→22:23)
[2018-01-07] MEDS: AMIODARONE 200 MG TABLET PO SCH (08:09)
[2018-01-07] MEDS: AMOX/CLAV 875 MG/125 MG TABLET PO SCH ×2 (08:09→22:23)
[2018-01-07] MEDS: SENNA + DOCUSATE TABLET PO SCH ×2 (08:10→22:25)
[2018-01-07] MEDS: CARVEDILOL 3.125 MG TABLET PO SCH ×2 (08:10→18:09)
[2018-01-07] MEDS: POLYETHYL GLYCOL 3350 17gm PACKET PO SCH (08:10)
--- NOTE | 2018-01-07 08:34 | XRay Report ---
INDICATION: CHF PROCEDURE: CHEST 2-VIEWS UPRIGHT (PA & LAT) Encounter: Initial COMPARISON: January 02, 2018 FINDINGS: The lungs are stable in appearance with scattered airspace opacities in the right lung, some which may be due to prior surgery. Elevated right hemidiaphragm with a small right effusion. No pneumothorax. Left lung is clear. Heart size and mediastinal contours are stable. Pulmonary vascularity appears normal. Impression: No focal pneumonia or significant congestive failure. .
--- NOTE | 2018-01-07 10:14 | IRU Progress Note ---
- Subjective/Serverity of Illness Date: 01/07/18 Mr. López was interviewed and examined in his room. His mental status is very good today. He seems to be well oriented. He is cooperative with therapy. He does feel as though he is "sluggish." Uncertain what this means for sure. He denies actual dyspnea. He reports that he ate well and denies any nausea or vomiting. Review of chest radiograph shows clearing of right lower lobe infiltrate. There is chronic right hemidiaphragm elevation with scarring and probable small pleural effusion. From a therapy standpoint he is doing well. I spoke with therapist this morning who indicates that he is essentially independent for most activities. Patient states that he is able to take care of himself at home. Update on medical problems we are actively monitoring or managing as follows: 1. Acute systolic heart failure with ejection fraction 35%: Blood pressures have remained stable. He denies dyspnea. His lungs remain clear. 2. Recent atrial flutter with rapid ventricular response, status post cardioversion: Reviewed telemetry indicates normal sinus mechanism. Denies any symptoms of palpitations or shortness of breath. 3. Recent esophagectomy presumably for malignancy: He denies any abdominal pain. The abdomen is soft and nontender. Exam Vital Signs: Temperature 98.7 F 01/07/18 07:44 Pulse Rate 92 01/07/18 08:00 Respiratory Rate 16 01/07/18 07:44 Blood Pressure 101/54 01/07/18 07:49 Pulse Oximetry 98 01/07/18 07:44 Height/Weight/BMI: Height 1.75 m Weight 92.9 kg Body Mass Index 31.1 - Constitutional Present: no acute distress, well nourished, well developed, cooperative Comments: Reports "sluggishness." - Routine HEENT Exam Head: Present: normocephalic Eye: Present: EOMI ENT: Present: mucous membranes moist, oropharynx clear - Routine Neck Exam Present: supple - Routine Respiratory Exam Present: CTA bilaterally. Absent: wheezes - Routine Cardiovascular Exam Present: RRR, S1, S2. Absent: murmur - Routine Abdominal Exam Present: soft, normoactive bowel sounds, non distended. Absent: tenderness Comments: G-tube site is unremarkable. - Routine Extremities Exam Present: no edema - Routine Skin Exam Present: dry, warm - Routine Neurological Exam Present: alert, oriented X3, CN II-XII intact - Routine Psychiatric Exam Present: normal affect Results IRU - Labs Labs: I personally reviewed the chest radiograph which appears to be improved. Also his lab is unremarkable with hemoglobin 9.0 and white count now normal. IRU A/P (1) Atrial flutter with rapid ventricular response Current visit: No Status: Acute He remains in normal sinus mechanism both clinically as well as on telemetry. (2) Acute systolic (congestive) heart failure Current visit: No Status: Acute His heart failure appears to be adequately compensated at present. His lungs are clear. Transient hypotension yesterday at 92. Otherwise blood pressures have been well controlled. (3) Pleural effusion on right Problem details: Post op Current visit: No Status: Acute (4) Esophageal cancer Qualifiers: Malignant neoplasm of esophagus location: unspecified location Qualified Code(s): C15.9 - Malignant neoplasm of esophagus, unspecified Problem details: S/P resection of distal esophagus/prox stomach Current visit : No Status: Chronic (5) GERD (gastroesophageal reflux disease) Qualifiers: Esophagitis presence: esophagitis presence not specified Qualified Code(s) : K21.9 - Gastro-esophageal reflux disease without esophagitis Current visit: Yes Status: Acute (6) Hypotension Qualifiers: Hypotension type: unspecified hypotension type Qualified Code(s): I95.9 - Hypotension, unspecified Current visit: Yes Status: Resolved (7) Anemia Qualifiers: Anemia type: unspecified type Qualified Code(s): D64.9 - Anemia, unspecified Current visit: Yes Status: Acute (8) Acute delirium Current visit: Yes Status: Resolved His delirium likely was related to pulmonary infection which has now resolved. Cognitively he seems to be intact. DVT Prophylaxis: SCD's Resuscitation Status: Full Code - Course Hospital Course: John Mak MD: 12/28/17 10:38 Patient is tolerating therapy well. Denies dyspnea. Appetite is good. Telemetry in place without evidence of atrial fibrillation or flutter (occ PAC' s only) 12/28/17 10:43 12/31/17 10:29 Hypotensive spell this morning. Resolved with lying supine. Hemoglobin dropped to 8.8. Reflux symptoms reported last night and recently. Will add omeprazole. 01/01/18 10:27 Still with some orthostatic hypotension. Hemoglobin improved at 9.0 Complains of nausea. 01/03/18 14:25 Acute confusion noted. Blood pressure improved. Hemoglobin stable at 8.7 g percent. Chest radiograph with effusion versus infiltrate right lower lobe. Started on Augmentin by hospitalist service. 01/04/18 11:20 Improved dramatically with regard to delirium. Few crackles right base. Tolerating Augmentin well. Participating with therapy. 01/07/18 10:16 Cognition much improved. Lungs are clear. Improving with therapy and nearing dismissal. - Interventions to Obtain Goals PT Treatment Plan: Balance/Proprioception, Functional Activities, Gait Training , Patient/Family Education, Therapeutic Exercise OT Treatment Plan: ADL (Basic Care), Balance Training, Pt./Family Education, Ther. Exercise for ADL Goals Progress/Modifications: Patient has dramatically improved with regard to his cognition. I have reassessed his pulmonary status as well. His lungs sound clear. His chest x-ray is reviewed showing only chronic changes at present. It is not clear what is "sluggishness" represents. He denies actual dyspnea, cough or chest pains. He is able to eat and drink adequately and denies any nausea or vomiting. We will have a team meeting this new but it sounds as though he is improving dramatically with therapy and I anticipate that he will be going home soon. Have discussed also with the hospitalist service.
--- NOTE | 2018-01-07 13:39 | IRU Team Meeting ---
IRU Team Meeting - Nursing Bladder Assistive Devices Utilized:: Absorbent Pad Bladder Management Level of Assist: Modified Independent Bladder Frequency of Accidents: No accidents Bowel Assistive Devices Utilized:: Medication, Absorbent Pad Bowel Management Level of Assist: Modified Independent Bowel Frequency of Accidents: No accidents Vital Signs: Vital Signs - 24 hr 01/06/18 16:06 01/06/18 16:32 01/07/18 00:00 Temperature 98.3 F 98.5 F Pulse Rate 77 72 84 Respiratory Rate 18 20 Blood Pressure 127/60 118/60 Pulse Oximetry 97 93 01/07/18 07:42 01/07/18 07:44 01/07/18 07:49 Temperature 98.7 F Pulse Rate 89 Respiratory Rate 16 Blood Pressure 136/70 138/73 101/54 Pulse Oximetry 98 01/07/18 08:00 Temperature Pulse Rate 92 Respiratory Rate Blood Pressure Pulse Oximetry Current Medications: Acetaminophen (Tylenol) 650 mg PO Q5H PRN PRN Reason: Fever Last Admin: 01/02/18 16:28 Dose: 650 mg Amiodarone HCl (Pacerone) 200 mg PO DAILY [facility] Last Admin: 01/07/18 08:09 Dose: 200 mg Amoxicillin/Clavulanate Potassium (Augmentin 875/125) 875 mg PO Q12HR [facility] Last Admin: 01/07/18 08:09 Dose: 875 mg Apixaban (Eliquis) 5 mg PO BID [facility] Last Admin: 01/07/18 08:09 Dose: 5 mg Bisacodyl (Dulcolax) 10 mg RECTALLY DAILY PRN PRN Reason: Constipation Last Admin: 01/03/18 20:20 Dose: 10 mg Carvedilol (Coreg) 3.125 mg PO BIDWM [facility] Last Admin: 01/07/18 08:10 Dose: 3.125 mg Furosemide (Lasix) 40 mg PO DAILY [facility] Last Admin: 12/31/17 08:38 Dose: 40 mg Magnesium Hydroxide (Mom) 30 ml PO DAILY PRN PRN Reason: Constipation Last Admin: 01/04/18 20:49 Dose: 30 ml Omeprazole (Prilosec) 20 mg PO HS [facility] Last Admin: 01/06/18 20:08 Dose: 20 mg Ondansetron HCl (Zofran) 4 mg IVP Q4H PRN PRN Reason: Nausea &/or vomiting Last Admin: 01/02/18 10:34 Dose: 4 mg Polyethylene Glycol (Miralax) 17 gm PO DAILY [facility] Last Admin: 01/07/18 08:10 Dose: Not Given Rosuvastatin Calcium (Crestor) 2.5 mg PO Q2D [facility] Last Admin: 01/07/18 08:08 Dose: 2.5 mg Sacubitril/Valsartan (Entresto 24/26mg) 1 tab PO BID [facility] Last Admin: 12/31/17 08:39 Dose: 1 tab Senna (Senna Lax) 17.2 mg PO HS [facility] Last Admin: 01/06/18 20:08 Dose: Not Given Senna/Docusate Sodium (Senna Plus Tablet) 1 tab PO BID [facility] Last Admin: 01/07/18 08:10 Dose: Not Given Sodium Chloride (Iv Flush) 10 - 80 ml IV PRN PRN PRN Reason: Flushing Last Admin: 01/06/18 20:08 Dose: 10 ml Spironolactone (Aldactone) 25 mg PO DAILY [facility] Last Admin: 01/05/18 08:50 Dose: 25 mg Tamsulosin HCl (Flomax) 0.[address] [facility] Last Admin: 01/06/18 20:08 Dose: 0.4 mg Current Medical Issues: recent pneumonia, new diarrhea, recent AF/A.flutter now converted, recent delirium, CHF with EF 35% Comments: I certify that I personally led the interdisciplinary team meeting and agree with comments, barriers and goals indicated. Team meeting was held in the patient's room with the patient and the following family members present: patient's Mr. López is rather dramatically improved with regard to his cognition and resolution of his delirium. He has had recent treatment for right lower lobe infiltrate/pneumonia. Follow-up chest x-ray shows improvement but with chronic changes in the right base. He denies any chest pain. His appetite is good. He has not had further nausea. He has developed a couple of loose stools and these will be checked for C. difficile. - Physical Therapy Bed, Chair, Wheelchair Transfer Assist: Stand By Assist/Supervision Ambulation Ability: Stand By Assist/Supervision Ambulation Distance: 201 Wheelchair Propulsion Ability: Stand By Assist/Supervision Wheelchair Propulsion Distance: 110 Stair Climbing Ability: Stand By Assist/Supervision Number of Steps Climbed: 12 Car Transfer Ability: Stand By Assist/Supervision Comments: He is progressing well with physical therapy and is standby assist for all transfers and gait. He is requiring fewer cues and is increasing in his safety awareness. Would like to continue with physical therapy a few more days to allow him to become more independent. - Occupational Therapy Eating Ability: Independent Grooming Ability: Stand By Assist/Supervision Bathing Ability: Stand By Assist/Supervision Upper Body Dressing Ability: Modified Independent Lower Body Dressing Ability: Stand By Assist/Supervision Tub Transfer Assist: Contact Guard Assistance Toileting Assist: Stand By Assist/Supervision Toilet Transfer Assist: Contact Guard Assistance Comments: Most of the patient's ADLs are at contact-guard assistance or supervision level. He is increasing in his strength and ability to perform ADLs. - Goals Physical Therapy Goals: 12/31/17. 1: 60 min of activity with 2 rest breaks. - not met, requires 4. 2: Increase ambulation distance to 200 ft. - met. . 1.) Modified [place] with all transfers and ambulation. 2.) Timed Up and Go balance test completed within 25 seconds. Occupational Therapy Goals: OT goals 12/31/17: 1.) Toileting with modified independence. Not met--ongoing. - Barriers to Discharge Barriers to Attaining Goals: Endurance (he is being provided progressive resistive exercises.), Medical Limitation (does have reduced exercise tolerance. However this is improving and he is being provided additional endurance training.) - Care Plan Anticipated Length of Stay (days): 3 Anticipated DC Destination: Home, Self Care, Home Health Service I have led this team conference and agree with the plan. Interventions/Goals: Continue working with patient over the next 3-4 days. Anticipate safe dismissal to his home with home health assistance.
[2018-01-07] MEDS: OMEPRAZOLE 20 MG CAPSULE PO SCH (22:24)
[2018-01-07] MEDS: TAMSULOSIN 0.4 MG CAPSULE PO SCH (22:24)
[2018-01-07] MEDS: SENNOSIDES 8.6 MG TABLET PO SCH (22:24)
[2018-01-08] MEDS: APIXABAN 5 MG TABLET PO SCH ×2 (09:00→21:11)
[2018-01-08] MEDS: POLYETHYL GLYCOL 3350 17gm PACKET PO SCH (09:00)
[2018-01-08] MEDS: SENNA + DOCUSATE TABLET PO SCH (09:00)
[2018-01-08] MEDS: AMOX/CLAV 875 MG/125 MG TABLET PO SCH ×2 (09:00→21:11)
[2018-01-08] MEDS: AMIODARONE 200 MG TABLET PO SCH (09:00)
[2018-01-08] MEDS: CARVEDILOL 3.125 MG TABLET PO SCH ×2 (09:00→17:47)
[2018-01-08] MEDS: ONDANSETRON ODT 4 MG TABLET PO PRN (09:10)
[2018-01-08] MEDS: SALINE FLUSH 10ml SYRINGE IV PRN ×3 (09:10→21:13)
--- NOTE | 2018-01-08 10:33 | Progress Note ---
- Date 01/08/18 Subjective: Obdulio was seen after breakfast. Earlier his stomach was upset and he c/o nausea. After Zofran ODT, that has resolved and he's feeling better now. His cough was barely noticeable yesterday, but his has noticed a little cough this morning. He denies fever or chills. He has not been short of breath. No chest pain. He's had loose stools, C. diff was neg. Objective Vital signs: Temperature 99.0 F 01/07/18 21:03 Pulse Rate 86 01/08/18 00:00 Respiratory Rate 20 01/07/18 21:03 Blood Pressure 119/65 01/07/18 21:04 Pulse Oximetry 94 01/07/18 21:03 Height/Weight/BMI: Height 1.75 m Weight 93.8 kg Body Mass Index 31.1 - Constitutional Present: no acute distress, well nourished, well developed - Routine HEENT Exam Head: Present: normocephalic Eye: Present: PERRL. Absent: conjunctival icterus, scleral injection ENT: Present: mucous membranes moist, oropharynx clear - Routine Respiratory Exam Present: CTA bilaterally - Routine Cardiovascular Exam Present: RRR, S1, S2 - Routine Abdominal Exam Present: soft, non distended, non tender. Absent: normoactive bowel sounds ( hyperactive) - Routine Extremities Exam Present: edema (1+ BLE) - Routine Musculoskeletal Exam Musculoskeletal: Present: moving extremities well - Routine Skin Exam Present: intact, dry, warm - Routine Neurological Exam Present: alert, oriented X3, normal speech - Routine Psychiatric Exam Present: normal affect, cooperative Results - Labs CBC & Chem 7: 01/07/18 04:04 01/07/18 04:03 Microbiology Results: Microbiology 01/02/18 02:32 Port/Picc Blood Culture - Final No Growth After 5 Days Assessment and Plan (1) Anemia Current visit: Yes Status: Acute Assessment and Plan: Assessment Hypotension-12/31/17 Atrial flutter with RVR - s/p DC cardioversion maintaining normal sinus rhythm ( 12/24/17) Chronic anticoagulation Esophageal cancer-S/P resection of distal esophagus/proximal stomach Systolic heart failure-ejection fraction 35% Normocytic anemia Lumbar Spinal stenosis Benign prostatic hyperplasia Hypercholesterolemia Early pneumonia Plan Augmentin day #6 to cover possible early pneumonia (Risk for aspiration). Repeat CXR 01/07 was negative. Orthostasis improving, but some occasional low BP. Continue to hold Entresto, Lasix, Aldactone for now. Lourdes Alvarenga APRN reviewed cardiac discharge meds and reconciled them on - may want to check with her prior to discharge. CBC shows stable hgb at 9.0. Electrolytes and renal function remain stable. Discharge planned for 01/10 - he shouldn't need Augmentin after discharge. DVT Prophylaxis: Eliquis GI Prophylaxis: other (Prilosec) Resuscitation Status: Full Code - Physician Narrative Physician: Christin Morin MD Narrative: Date: 01/08/18 Time: 1 I have independently evaluated and examined this patient. I reviewed the chart, the patient's history, and the [employer] UP OPERATOR/PA's documented findings as above. We discussed and formulated the assessment and plan as above with additions as below: Mr. López was seen with his at the bedside. He complains of diarrhea for the past 2 days; he had a watery stool after lunch today. He denies abdominal pain or cramping. Respirations nonlabored, abdomen soft, nontender +1 edema bilateral ankles Chest x-ray obtained yesterday reviewed by myself-elevated right hemidiaphragm, small pleural effusion, posterior right opacities-previously present. Diarrhea likely [id number] probable cause although omeprazole can can induce diarrhea as well as can statins. Given resolution of pulmonary symptoms I would be inclined to complete antibiotics after 7 day course. Recommended adding yogurt to diet to minimize GI side effects. Hospital Course Summary Disclaimer: The visit summary below is not to be considered part of the above Progress Note. Hospital Course: 12/27/17-hospitalist consult Agree with admission to IRU for further strengthening. Pain control and rehabilitation therapies per Dr. Mak. His hemoglobin was 9.5 on admission. Prior to admission for his esophageal surgery hemoglobin was 12.1. He ranged from 9.3-10.2 during his recent hospitalization. Continue to monitor periodically, especially given the initiation of anticoagulation in light of his recent atrial flutter. Medications, labs, vital signs are reviewed. Care will return to Dr. Richard upon dismissal. Hospitalist team will continue to follow patient along with you during his stay. 12/31/17 Reviewed telemetry-normal sinus rhythm. Start normal saline 250 per hour 2 hours for hypotension. Hold Lasix and Entresto. Check BMP in a.m. Mild hemoglobin drop 9.5-->8.8. Repeat CBC tomorrow. Chest check daily weights. Monitor I's and O's given his systolic heart failure. PPI started for nocturnal reflux. Case discussed with Dr. Lynn and Dr. Mak. 01/02/18 Fever overnight up to 101.3. CBC revels mild leukocytosis- 11.2 UA was negative this morning Blood cultures were obtained- one from portacath line Will obtain chest X-ray today BP stable at 118/56 this morning. Will continue to monitor carefully Plan 01/05/18 Augmentin day #3 to cover possible early pneumonia (Risk for aspiration) Repeat CXR on Sunday. Pt is afebrile. Orthostasis is quite a bit better, but some occasional low BP. Continue to hold Entresto, Lasix. Will hold Aldactone as well as potassium level is trending up. Repeat labs Sunday AM. Continue PT/OT for strengthening. Pt did have very large BM today. DC'd scheduled Dulcolax for now. Continue the remainder of laxatives. 01/08/18 Augmentin day #6 to cover possible early pneumonia (Risk for aspiration). Repeat CXR 01/07 was negative. Orthostasis improving, but some occasional low BP. Continue to hold Entresto, Lasix, Aldactone for now. Lourdes Alvarenga APRN reviewed cardiac discharge meds and reconciled them on - may want to check with her prior to discharge. CBC shows stable hgb at 9.0. Electrolytes and renal function remain stable. Discharge planned for 01/10 - he shouldn't need Augmentin after discharge.
[2018-01-08] MEDS ORDERED: SENNA + DOCUSATE TABLET PO PRN (10:40)
[2018-01-08] MEDS ORDERED: POLYETHYL GLYCOL 3350 17gm PACKET PO PRN (10:40)
--- NOTE | 2018-01-08 10:56 | IRU Progress Note ---
- Subjective/Serverity of Illness Date: 01/08/18 Obdulio was evaluated in his room with his present. This morning he again developed severe nausea. He ate a good breakfast and then developed nausea he states. At one point he states he awakened with nausea but this is not clear. He has had no vomiting. He denies any abdominal pain or chest pain. He received Zofran ODT and the nausea has totally resolved. It is my assumption that the nausea is related to his esophagectomy and reflux etc. No other etiology is noted at present except for the use of Augmentin which can certainly cause nausea. With regard to his early pneumonia, he denies any cough. He denies any dyspnea. He has been afebrile. Exam Vital Signs: Temperature 98.3 F 01/08/18 08:15 Pulse Rate 96 01/08/18 08:40 Respiratory Rate 18 01/08/18 08:15 Blood Pressure 126/67 01/08/18 08:18 Pulse Oximetry 94 01/08/18 08:15 Height/Weight/BMI: Height 1.75 m Weight 90.5 kg Body Mass Index 31.1 - Constitutional Present: no acute distress, well nourished, well developed, cooperative - Routine HEENT Exam Head: Present: normocephalic Eye: Present: EOMI ENT: Present: mucous membranes moist, oropharynx clear - Routine Respiratory Exam Present: CTA bilaterally. Absent: wheezes - Routine Cardiovascular Exam Present: RRR, S1, S2. Absent: murmur - Routine Abdominal Exam Present: soft, normoactive bowel sounds, non distended. Absent: tenderness Comments: G-tube site is unremarkable. The abdomen remains totally soft (except for scar tissue from previous surgery) and benign appearing. Has good bowel sounds. - Routine Extremities Exam Present: no edema. Absent: cyanosis, clubbing - Routine Skin Exam Present: dry, warm - Routine Neurological Exam Present: alert, oriented X3 (rations previous delirium has resolved. states that he is very sharp at the present time and seems to be well oriented to me today.), CN II-XII intact - Routine Psychiatric Exam Present: normal affect, cooperative, good insight, good judgment IRU A/P (1) Atrial flutter with rapid ventricular response Current visit: No Status: Acute Continues in sinus mechanism after cardioversion. (2) Acute systolic (congestive) heart failure Current visit: No Status: Acute Heart failure appears to be adequately compensated at present. Previous ejection fraction estimated at 35%. (3) Pleural effusion on right Problem details: Post op Current visit: No Status: Acute (4) Esophageal cancer Qualifiers: Malignant neoplasm of esophagus location: unspecified location Qualified Code(s): C15.9 - Malignant neoplasm of esophagus, unspecified Problem details: S/P resection of distal esophagus/prox stomach Current visit : No Status: Chronic (5) GERD (gastroesophageal reflux disease) Qualifiers: Esophagitis presence: esophagitis presence not specified Qualified Code(s) : K21.9 - Gastro-esophageal reflux disease without esophagitis Current visit: Yes Status: Acute Reflux may be the etiology of his nausea, versus Augmentin. (6) Hypotension Qualifiers: Hypotension type: unspecified hypotension type Qualified Code(s): I95.9 - Hypotension, unspecified Current visit: Yes Status: Resolved (7) Anemia Qualifiers: Anemia type: unspecified type Qualified Code(s): D64.9 - Anemia, unspecified Current visit: Yes Status: Acute (8) Acute delirium Current visit: Yes Status: Resolved DVT Prophylaxis: Eliquis Resuscitation Status: Full Code - Course Hospital Course: John Mak MD: 12/28/17 10:38 Patient is tolerating therapy well. Denies dyspnea. Appetite is good. Telemetry in place without evidence of atrial fibrillation or flutter (occ PAC' s only) 12/28/17 10:43 12/31/17 10:29 Hypotensive spell this morning. Resolved with lying supine. Hemoglobin dropped to 8.8. Reflux symptoms reported last night and recently. Will add omeprazole. 01/01/18 10:27 Still with some orthostatic hypotension. Hemoglobin improved at 9.0 Complains of nausea. 01/03/18 14:25 Acute confusion noted. Blood pressure improved. Hemoglobin stable at 8.7 g percent. Chest radiograph with effusion versus infiltrate right lower lobe. Started on Augmentin by hospitalist service. 01/04/18 11:20 Improved dramatically with regard to delirium. Few crackles right base. Tolerating Augmentin well. Participating with therapy. 01/07/18 10:16 Cognition much improved. Lungs are clear. Improving with therapy and nearing dismissal. 01/08/18 10:56 Clinically he is stable. He is awake alert and oriented. Complain of severe nausea this morning which is relieved by single dose of Zofran ODT. Abdomen is benign on exam. - Interventions to Obtain Goals PT Treatment Plan: Balance/Proprioception, Functional Activities, Gait Training , Patient/Family Education, Therapeutic Exercise OT Treatment Plan: ADL (Basic Care), Balance Training, Pt./Family Education, Ther. Exercise for ADL Goals Progress/Modifications: Etiology of his nausea is not certain. It could be related to Augmentin which can certainly cause nausea. Could also be related to reflux and his previous surgeries. It was resolved with a single dose of Zofran. He plans to see his surgeon early next week after dismissal and if it continues he may well need EGD or other evaluation. At present, there is no evidence of obstruction and his bowels are moving fine. (Negative for C. difficile) Nursing reminder to always give Augmentin with food.
[2018-01-08] MEDS: SENNOSIDES 8.6 MG TABLET PO SCH (21:11)
[2018-01-08] MEDS: OMEPRAZOLE 20 MG CAPSULE PO SCH (21:11)
[2018-01-08] MEDS: TAMSULOSIN 0.4 MG CAPSULE PO SCH (21:12)
[2018-01-09] MEDS: ROSUVASTATIN 5 MG TABLET PO SCH (08:52)
[2018-01-09] MEDS: APIXABAN 5 MG TABLET PO SCH ×2 (08:53→20:08)
[2018-01-09] MEDS: AMOX/CLAV 875 MG/125 MG TABLET PO SCH ×2 (08:53→20:20)
[2018-01-09] MEDS: AMIODARONE 200 MG TABLET PO SCH (08:56)
[2018-01-09] MEDS: CARVEDILOL 3.125 MG TABLET PO SCH ×2 (08:57→17:53)
[2018-01-09] MEDS: TAMSULOSIN 0.4 MG CAPSULE PO SCH (20:12)
[2018-01-09] MEDS: SENNOSIDES 8.6 MG TABLET PO SCH (20:13)
[2018-01-09] MEDS: OMEPRAZOLE 20 MG CAPSULE PO SCH (20:13)
[2018-01-10 07:26] VITALS: RESP 18; TEMP 96.5
[2018-01-10 07:27] VITALS: BP 82/51; PULSE 103; O2SAT 93
[2018-01-10] MEDS: AMIODARONE 200 MG TABLET PO SCH (09:20)
[2018-01-10] MEDS: CARVEDILOL 3.125 MG TABLET PO SCH (09:20)
[2018-01-10] MEDS: APIXABAN 5 MG TABLET PO SCH (09:20)
[2018-01-10] MEDS: SALINE FLUSH 10ml SYRINGE IV PRN ×2 (09:23→10:02)
[2018-01-10] MEDS: ONDANSETRON ODT 4 MG TABLET PO PRN (09:27)
[2018-01-10] MEDS: AMOX/CLAV 875 MG/125 MG TABLET PO SCH (09:35)
--- NOTE | 2018-01-10 10:35 | IRU Progress Note ---
- Subjective/Serverity of Illness Date: 01/10/18 Obdulio continues to struggle with recurrent nausea. According to the patient and his , this happens when he lies down. It typically does not happen when he is sitting or standing. Certainly sounds related to his reflux/ esophagectomy. He has been on Augmentin and I requested that we hold that this morning as well. Otherwise he is doing very well. He denies any dyspnea. He has remained in sinus mechanism. He denies any chest pain. He has no cough. His appetite remains good as long as he is not nauseated. He states that he feels comfortable going home and his agrees at this time. Exam Vital Signs: Temperature 96.5 F L 01/10/18 07:26 Pulse Rate 103 H 01/10/18 07:27 Respiratory Rate 18 01/10/18 07:26 Blood Pressure 82/51 01/10/18 07:27 Pulse Oximetry 93 01/10/18 07:27 Height/Weight/BMI: Height 1.75 m Weight 89.4 kg Body Mass Index 31.1 - Constitutional Present: mild distress (nausea), well nourished, well developed, obese - Routine HEENT Exam Eye: Present: EOMI ENT: Present: mucous membranes moist - Routine Neck Exam Present: supple - Routine Respiratory Exam Present: CTA bilaterally. Absent: wheezes - Routine Cardiovascular Exam Present: RRR, S1, S2. Absent: murmur - Routine Abdominal Exam Present: soft, normoactive bowel sounds, non distended. Absent: tenderness Comments: Abdominal exam remains benign. He is nontender. Does have fullness where the incision was in the midline. - Routine Extremities Exam Present: no edema, pulses intact - Routine Skin Exam Present: dry, warm - Routine Neurological Exam Present: alert, oriented X3, CN II-XII intact - Routine Psychiatric Exam Present: normal affect IRU A/P (1) Atrial flutter with rapid ventricular response Current visit: No Status: Acute Patient has remained in sinus mechanism. Denies any palpitations. (2) Acute systolic (congestive) heart failure Current visit: No Status: Acute His heart failure appears to be compensated at present. Ejection fraction around 35%. (3) Pleural effusion on right Problem details: Post op Current visit: No Status: Acute (4) Esophageal cancer Qualifiers: Malignant neoplasm of esophagus location: unspecified location Qualified Code(s): C15.9 - Malignant neoplasm of esophagus, unspecified Problem details: S/P resection of distal esophagus/prox stomach Current visit : No Status: Chronic (5) GERD (gastroesophageal reflux disease) Qualifiers: Esophagitis presence: esophagitis presence not specified Qualified Code(s) : K21.9 - Gastro-esophageal reflux disease without esophagitis Current visit: Yes Status: Acute He has been plagued by recurrent nausea, typically related to lying down. It is consistently relieved with Zofran. He has been on a PPI. Not certain it is helped a lot. (6) Hypotension Qualifiers: Hypotension type: unspecified hypotension type Qualified Code(s): I95.9 - Hypotension, unspecified Current visit: Yes Status: Resolved (7) Anemia Qualifiers: Anemia type: unspecified type Qualified Code(s): D64.9 - Anemia, unspecified Current visit: Yes Status: Acute Repeat hemoglobin improved at around 9 g percent. No evidence of active bleeding at present. (8) Acute delirium Current visit: Yes Status: Resolved DVT Prophylaxis: Eliquis Resuscitation Status: Full Code - Course Hospital Course: John Mak MD: 12/28/17 10:38 Patient is tolerating therapy well. Denies dyspnea. Appetite is good. Telemetry in place without evidence of atrial fibrillation or flutter ([facility] PAC' s only) 12/28/17 10:43 12/31/17 10:29 Hypotensive spell this morning. Resolved with lying supine. Hemoglobin dropped to 8.8. Reflux symptoms reported last night and recently. Will add omeprazole. 01/01/18 10:27 Still with some orthostatic hypotension. Hemoglobin improved at 9.0 Complains of nausea. 01/03/18 14:25 Acute confusion noted. Blood pressure improved. Hemoglobin stable at 8.7 g percent. Chest radiograph with effusion versus infiltrate right lower lobe. Started on Augmentin by hospitalist service. 01/04/18 11:20 Improved dramatically with regard to delirium. Few crackles right base. Tolerating Augmentin well. Participating with therapy. 01/07/18 10:16 Cognition much improved. Lungs are clear. Improving with therapy and nearing dismissal. 01/08/18 10:56 Clinically he is stable. He is awake alert and oriented. Complain of severe nausea this morning which is relieved by single dose of Zofran ODT. Abdomen is benign on exam. 01/10/18 10:35 Repeat lab stable. CHF is compensated. No recurrence of pneumonia/fever/cough. Recurrent nausea with lying down likely related to reflux. - Interventions to Obtain Goals PT Treatment Plan: Balance/Proprioception, Functional Activities, Gait Training , Patient/Family Education, Therapeutic Exercise OT Treatment Plan: ADL (Basic Care), Balance Training, Pt./Family Education, Ther. Exercise for ADL Goals Progress/Modifications: Patient is Y state that they are ready for him to go home today. He declines home health. We will send copies of records to Joey Delong and Gonzalez Richard.
[2018-01-10] MEDS ORDERED: FALL RISK - PHARMACY CONSULT MC ONE (10:39)
--- NOTE | 2018-01-10 15:31 | Discharge Summary ---
Discharge Information Date of admission: 12/26/17 18:40 Anticipated date of discharge: 01/10/18 Attending Physician: John Mak MD Primary care physician: Gonzalez Richard MD Consults: 12/26/17 20:23 IRU Screening [Inpatient Rehab Screening] [CONS] Routine Screen requested by:: Case Management 12/26/17 20:48 Physician Consult [CONS] Routine Consulting Provider: Christin Morin Reason For Exam: medical management Ordering Provider has Notified Delivery Crew Member: No - Discharge Diagnosis (1) Atrial flutter with rapid ventricular response Status: Acute (2) Acute systolic (congestive) heart failure Status: Acute (3) Pleural effusion on right Status: Acute (4) Esophageal cancer Status: Chronic (5) GERD (gastroesophageal reflux disease) Status: Acute (6) Anemia Status: Acute 1. Acute systolic heart failure with ejection fraction 35% 2. Atrial flutter with rapid ventricular response, resolved after cardioversion 3. Pneumonia occurring during hospitalization with delirium, resolved 4. Gastroesophageal reflux disease with nausea with supine position 5. Status post esophagectomy for cancer of esophagus 6. Anemia of chronic disease - Laboratory Labs: 01/07/18 04:04 01/09/18 03:57 - Microbiology Microbiology 01/02/18 02:32 Port/Picc Blood Culture - Final No Growth After 5 Days History of Present Illness HPI: Mr. López developed sudden onset of atrial fibrillation with rapid ventricular response on 12/24/2017. Symptomatically he felt very tired and was short of breath. He denied any chest pain. He underwent cardioversion by Dr. Casas on 12/24/2017. At that time he was diagnosed with atrial flutter with rapid ventricular rate which was symptom any despite administration of intravenous metoprolol, verapamil and digoxin. It is noted that he has had a recent esophagectomy for malignancy and therefore could not tolerate a transesophageal echocardiogram. Transthoracic echo was done showing ejection fraction of 35% in the setting of a global hypokinesis with mild concentric left ventricular hypertrophy. Patient developed multiple functional deficits and it was recommended that he be treated in acute inpatient rehabilitation where he was transferred on . Hospital Course This is a general summary of the patient's hospital course. For more details refer to the complete medical record. He was admitted to acute inpatient rehabilitation for a multidisciplinary approach to his recovery following his episode of atrial flutter with rapid ventricular response and cardioversion as well as his acute systolic heart failure with EF 35%. He was followed by the hospitalist service. On telemetry and clinically he remained in a normal sinus rhythm. He denied any chest pain nor any sensation of palpitations. Medically he did develop some symptoms of nausea when he lying down. He also had symptoms of reflux. He was started on a PPI in this regard. He continued to have severe nausea off and on but this was always in relationship to lying down. It was adequately relieved with the use of Zofran. He did develop a fever and leukocytosis toward the end of his hospitalization on rehabilitation. He was diagnosed with right lower lobe pneumonia and was treated with Augmentin with benefit. He had significant delirium in association with the pneumonia. This cleared rather rapidly over a period of several days and chest x-ray showed improvement. The following gains are to be considered preliminary information. The reader is encouraged to refer to actual therapy notes and reports for specific details. He was seen by physical therapy. At the conclusion of his stay on rehabilitation the following functional status was noted: He was modified independent for most transfers. He was independent for sit to supine bed mobility as well as supine to sit bed mobility. He was independent with toileting assist and modified independent for toilet transfer assist. He was standby assist for car transfers. He was able to walk with a front-wheeled walker 284 feet with modified independent level. He was also seen by occupational therapy and had the following functional status noted at the conclusion of his stay: He was independent with eating, modified independent for grooming and was standby assist for bathing ability. He was modified independent for upper body dressing and standby assist for lower body dressing. He was modified independent for toileting assist. He was standby assist for bed/chair/wheelchair transfers. At the time dismissal he continues to be plagued by some nausea every time he lies down. He was given Zofran in this regard. On 01/07/2018 his hemoglobin was 9.0 g percent. His white count was 7600 with a normal differential. Platelets were 216,000. On 01/09/2018 his potassium was 4.0 and his creatinine was normal at 1.0. It is noted that we did not need to use the gastric tube during his stay on rehabilitation. He was able to take adequate nutrition orally. He was dismissed and significantly improved condition on 01/10/2018 to the care of his . He will follow-up with Dr. Rodriguez as well as Dr. Richard and Dr. Casas. Hospital course: 12/27/17-hospitalist consult Agree with admission to IRU for further strengthening. Pain control and rehabilitation therapies per Dr. Mak. His hemoglobin was 9.5 on admission. Prior to admission for his esophageal surgery hemoglobin was 12.1. He ranged from 9.3-10.2 during his recent hospitalization. Continue to monitor periodically, especially given the initiation of anticoagulation in light of his recent atrial flutter. Medications, labs, vital signs are reviewed. Care will return to Dr. Richard upon dismissal. Hospitalist team will continue to follow patient along with you during his stay. 12/31/17 Reviewed telemetry-normal sinus rhythm. Start normal saline 250 per hour 2 hours for hypotension. Hold Lasix and Entresto. Check BMP in a.m. Mild hemoglobin drop 9.5-->8.8. Repeat CBC tomorrow. Chest check daily weights. Monitor I's and O's given his systolic heart failure. PPI started for nocturnal reflux. Case discussed with Dr. Lynn and Dr. Mak. 01/02/18 Fever overnight up to 101.3. CBC revels mild leukocytosis- 11.2 UA was negative this morning Blood cultures were obtained- one from portacath line Will obtain chest X-ray today BP stable at 118/56 this morning. Will continue to monitor carefully Plan 01/05/18 Augmentin day #3 to cover possible early pneumonia (Risk for aspiration) Repeat CXR on Sunday. Pt is afebrile. Orthostasis is quite a bit better, but some occasional low BP. Continue to hold Entresto, Lasix. Will hold Aldactone as well as potassium level is trending up. Repeat labs Sunday AM. Continue PT/OT for strengthening. Pt did have very large BM today. DC'd scheduled Dulcolax for now. Continue the remainder of laxatives. 01/08/18 Augmentin day #6 to cover possible early pneumonia (Risk for aspiration). Repeat CXR 01/07 was negative. Orthostasis improving, but some occasional low BP. Continue to hold Entresto, Lasix, Aldactone for now. Lourdes Colette, [employer] INTERN reviewed cardiac discharge meds and reconciled them on - may want to check with her prior to discharge. CBC shows stable hgb at 9.0. Electrolytes and renal function remain stable. Discharge planned for 01/10 - he shouldn't need Augmentin after discharge. Time spent with patient: greater than 35 minutes Resuscitation Status: Full Code Discharge Plan - Med Rec/Dispo Referrals/Follow Up: Frank Casas MD [Physician] - 2 Weeks (Frank Casas MD [Physician] - 2 Weeks) Gonzalez Richard MD [Family Provider] - (Dr. Lily Richard on 01/29/18 at 4:30 pm forf Hosp. follow-up. [place] [id number] [place] [id number]) Rupa Instructions: A-fib (Atrial Fibrillation) (DC), Fall Prevention (DC) Prescriptions: New Lisinopril [Prinivil] 2.5 mg PO DAILY #30 tab Amiodarone HCl 100 mg PO DAILY #30 tab Continue Mirabegron [Myrbetriq] 25 mg PO DAILY #90 tab.er.24h Apixaban [Eliquis] 5 mg PO BID #60 tab Carvedilol [Coreg] 3.125 mg PO BIDWM #30 tab Furosemide [Lasix 40 mg Tab] 40 mg PO DAILY #30 tab Spironolactone [Aldactone] 25 mg PO DAILY #25 tab Tamsulosin HCl 0.4 mg PO HS vitamin B complex tablet 1 tab-cap PO DAILY tab cholecalciferol (vitamin D3) 2,000 unit capsule 2,000 unit PO DAILY cap Crestor (rosuvastatin) 5 mg tablet 2.5 mg PO QOD #0 tab qhfpmvvd-dei-biaze acid 0.4 mg-lycopene 300 mcg-lutein 250 mcg tablet 1 tab PO QAM Discontinued SACUBITRIL/VALSARTAN 24/26mg [ENTRESTO 24/26mg] 1 tab PO BID #60 tab Amiodarone [Pacerone] 200 mg PO DAILY #30 tab - Disposition 01 Discharged Home, Self-Care - Dismissal Complete Discharge Instructions are:: Complete
--- NOTE | 2018-01-10 15:35 | Letter to Referring Physician ---
Dear Dr. Richard, This is a brief note to bring you up-to-date on the status of Obdulio López and his stay on the acute inpatient rehabilitation unit at [facility]. As you are likely aware, this patient was admitted to the acute care hospital on 12/24/17 for atrial fluter with RVR. He underwent successful cardioversion as medical management had not been able to control his rate. The patient was stabilized while on the acute level and admitted to inpatient rehabilitation unit at [facility] on December 26, 2017. While on inpatient rehabilitation, this patient was seen by occupational therapy and physical therapy and improved overall in their functional ability. We also monitored and managed the patient's recent dx of systolic heart failure while on Acute Rehab. Please see a copy of the history and physical examination as well as discharge summary enclosed with this letter for further details. He was plagued by quite a bit of nausea when he laid down. Likely this is related to the recent esophagectomy and reflux. This was consistently relieved with Zofran. He did experience an episode of fever and leukocytosis with diagnosis of probable pneumonia right lower lobe noted. He was treated with Augmentin. He was quite delirious during this time but his sensorium cleared with treatment of the pneumonia. Follow-up chest x-ray showed resolution. He continues to have either scarring or small effusion in the right base. It is noted we did not need to use his gastric tube during his stay on acute inpatient rehabilitation as he was able to take in adequate oral nutrition. Thank you for allowing us to be involved in this nice patient's care. Please contact me directly should you have any questions regarding their stay on the inpatient rehabilitation unit. Sincerely, John Mak M.D.
== END 2018-01-10 13:35 | disposition home or self-care (01) | DRG 945 ==
PROVIDERS: ADMIT Internal Medicine; ATTEND Internal Medicine